=== PATIENT | male | born 1950 | race Caucasian/White ===

== ENCOUNTER → 2017-10-16 13:05 | Outpatient (CLI) | payer MEDICARE, OTHER, SELFPAY ==
--- NOTE | 2017-10-17 18:40 | DI.NM.S_ITS ---
DATE OF SERVICE: 10/16/2017 ORDERING PHYSICIAN: Yifan Frankel MD PROCEDURE: Exercise treadmill stress and rest myocardial perfusion imaging with gating to assess wall motion and ejection fraction. INDICATIONS: The patient is a 67-year-old male with risks factors for CAD and presents with atypical chest discomfort. EXERCISE TREADMILL TESTING: This patient was able to exercise for a total of 7 minutes 4 seconds on a standard Davie protocol suggesting fair exercise capacity within WALT of +5%. He had a normal heart response achieving a maximum heart rate of 138 bpm (91% of his predicted maximum). He had a moderate hypertensive blood pressure response to exercise with a resting blood pressure of 130/80 increasing to a maximum of 220/80. He had no chest discomfort. His resting ECG is normal and there are no ischemic changes or arrhythmias with stress or in recovery. At 6 minutes 8 seconds of exercise and a heart rate of 136 beats per minute, 27.0 mCi of technetium-99 Myoview was injected and the patient was imaged 15 minutes later using a gated SPECT acquisition protocol. He returned the following day and was reinjected with an additional 25.5 mCi of technetium-99 Myoview and was imaged 30 minutes later, again using a gated SPECT acquisition protocol. FINDINGS: 1. Raw Data: There is fairly good myocardial tracer uptake. Lung/heart ratio is normal at 0.38 and the TID ratio is normal at 1.02. 2. Quantitative Gated SPECT: Post stress ejection fraction is estimated at 68% without any focal wall motion abnormalities. Resting ejection fraction is estimated at 73% with an end-diastolic volume of 90 mL. 3. Myocardial Perfusion Imaging: Post stress supine images show a mild perfusion defect at the base of the inferior wall in a pattern consistent with diaphragmatic attenuation which is supported by its complete resolution on the prone images which reveal a completely normal perfusion pattern. There are no other perfusion defects. The resting images show an identical perfusion pattern to that of the post stress supine images without any areas of improvement. CONCLUSION: 1. Normal myocardial perfusion study. 2. Mild fixed proximal inferior perfusion defect that resolves on prone imaging, consistent with diaphragmatic attenuation artifact. There is no evidence for myocardial ischemia or previous myocardial infarction. 3. Normal left ventricular size and function without any focal wall motion abnormality. 4. Fair exercise capacity without angina or ECG evidence of ischemia, although with a moderate hypertensive blood pressure response to exercise. Jhony Max - RS/fn/ doc#: [id number]/job#: [id number] dd: 10/17/2017 12:37:00 dt: 10/17/2017 18:22:00 DICTATING /COPIES TO: Yifan Candelaria MD COPIES MNE: LIBBY
== END ==
PROVIDERS: PCP Family Medicine; Visit Provider Family Medicine
DX: R07.89 Other chest pain (principal)
CPT/HCPCS: 78452; 93016; 93017; 93018; A9502

== ENCOUNTER → 2017-10-17 10:06 | Outpatient (CLI) | payer MEDICARE, OTHER, SELFPAY ==
--- NOTE | 2017-10-17 | DI.US.S_ITS ---
PROCEDURE: US ABD AORTA ANEURYSM SCREEN INDICATIONS: ABDOMINAL AORTIC ANEURYSM SCREENING TECHNIQUE: Real time scanning was performed of the aorta and iliac arteries, with image documentation. COMPARISON: None. FINDINGS: Aorta: Proximal aortic diameter measures 2.2 cm. Mid-aorta measures 2.1 cm. Distal aortic diameter is 1.7 cm. Iliac arteries: Right common iliac artery measures 1.3 cm. Left common iliac artery measures 1.2 cm. IMPRESSION: No aneurysm or dissection found. Dictated by: Isael Newell M.D. on 10/17/2017 at 12:31 Approved by: Isael Newell M.D. on 10/17/2017 at 12:32
== END ==
PROVIDERS: PCP Family Medicine; Visit Provider Family Medicine
DX: Z13.6 Encounter for screening for cardiovascular disorders (principal)
CPT/HCPCS: 76706

== ENCOUNTER → 2018-03-07 10:53 | Outpatient (CLI) | payer MEDICARE, OTHER, SELFPAY ==
--- NOTE | 2018-03-07 | DI.RAD.S_ITS ---
PROCEDURE: XR SHOULDER RT MIN 2V INDICATIONS: Right shoulder pain TECHNIQUE: 3 views of the shoulder were acquired. COMPARISON: [facility], CR, XR CHEST 2V, 09/08/2017, 10:54. [facility], CR, XR RIBS BI MIN 4V W CXR1V, 03/07/2018, 10:59. FINDINGS: Bones: No fractures or dislocations. No suspicious bony lesions. Moderate acromioclavicular and mild glenohumeral joint narrowing. Remote right eighth and ninth posterior-lateral rib fractures redemonstrated. Soft tissues: No suspicious soft tissue calcifications. IMPRESSION: Moderate acromioclavicular and mild glenohumeral joint degeneration. Dictated by: Dhruv REESE Interpreted: Cortes Richardson MD on 03/07/2018 at 14:15 Approved by: Cortes Richardson M.D. on 03/07/2018 at 15:42
--- NOTE | 2018-03-07 | DI.RAD.S_ITS ---
PROCEDURE: XR RIBS BI MIN 4V W CXR1V INDICATIONS: Rib pain bilateral unspecified for several months TECHNIQUE: 4 views of the left ribs were acquired, along with a single view chest. COMPARISON: [facility], , XR CHEST 2V, 09/08/2017, 10:54. FINDINGS: Surgical changes and devices: None. Bones and chest wall: Healed right eighth and ninth posterior lateral rib fractures.. No suspicious bony lesions. Overlying soft tissues appear unremarkable. Lungs and pleura: No pleural effusions or pneumothorax. Lungs appear clear. Mediastinum: Mediastinal contours appear normal. Heart size is normal. IMPRESSION: No acute cardiopulmonary disease. Healed right eighth and ninth posterior lateral rib fractures redemonstrated. Dictated by: Dhruv Orlando RRA Interpreted: Cortes Richardson MD on 03/07/2018 at 14:12 Approved by: Cortes Richardson M.D. on 03/07/2018 at 15:41
== END ==
PROVIDERS: PCP Family Medicine; Visit Provider Family Medicine
DX: M25.511 Pain in right shoulder (principal); M19.011 Primary osteoarthritis, right shoulder; R07.81 Pleurodynia; Z87.81 Personal history of (healed) traumatic fracture
CPT/HCPCS: 71111; 73030

== ENCOUNTER 2018-06-04 07:38 | Day surgery (SDC) | payer MEDICARE, OTHER, SELFPAY ==
[2018-06-04] VITALS (9 sets, daily range): BP systolic 111–154; BP diastolic 67–85; PULSE 56–60; RESP 14–16; TEMP 36.2–37; O2SAT 90–98; BMI 57.2
--- NOTE | 2018-06-04 | PATH_ITS ---
[facility] Accession Number: [id number] . 01 Material submitted: . PART A: ANTRAL BIOPSIES PART B: GE JUNCTION BIOPSIES . 02 Diagnosis: A. Antrum, Biopsies: Gastric antral mucosa with mild chronic gastritis. No evidence of Helicobacter organisms on H/E stain. Negative for intestinal metaplasia, dysplasia or malignancy. . B. Gastroesophageal Junction, Biopsies: Squamous mucosa with no diagnostic abnormality. 0-1 eosinophils per 40X high-power field. No columnar mucosa present for evaluation. Negative for dysplasia or malignancy. . [facility]/06/05/2018 . 02 Electronically signed: . Mike Hi MD, PhD, Pathologist NPI- [id number] . 01 Gross description: . Received two formalin-filled containers, both labeled with the patient's name: . A. In a container labeled antral, are two 0.2-0.5 cm portions of tissue, entirely submitted in cassette A. B. In a container labeled GE junction, are three 0.2-0.6 cm portions of tissue, entirely submitted in cassette B. ([id number]) /FRR . 02 Pathologist provided ICD-10: K21.9, R10.13 . 02 CPT . 661606, 395495 Performed at: 01 [facility] [address], [place], [place] [id number] MD Segundo Cheung MD Phone: [phone] Performed at: 02 [facility] [address] [place], [place] [id number] MD Manuela De Leon MD Phone: [phone]
[2018-06-04] MEDS: SODIUM CHLORIDE 0.9% 1,000 ML 200 ML IV (08:19)
--- NOTE | 2018-06-04 08:33 | PM.PREOP ---
Pre-operative Note Interval Note History & Physical reviewed/Exam performed by Physician: Yes Changes to H&P: No H&P completed within 30 days and has changed as indicated here:: Patient seen and examined. History physical examination from May 23, 2018 has not changed. Proceed with EGD and possible dilatation today as planned. I ASA Class (for procedural sedation): II
[2018-06-04] MEDS: LIDOCAINE 4% SOLN 50 ML 20 ML TOP (08:51)
[2018-06-04] MEDS: TETRACAINE/BENZOCAINE/BUTAMBEN (CETACAINE) BOTTLE 1 SPRAY TOP (08:52)
[2018-06-04] MEDS: fentaNYL 250 MCG/5 ML INJ IV (09:00)
[2018-06-04] MEDS: MIDAZOLAM 5 MG/5 ML VIAL IV (09:01)
--- NOTE | 2018-06-04 09:09 | PM.OP.ENDO ---
Operative Date/Time/Diagnoses Date of procedure: 06/04/18 Time of procedure: 09:09 Pre-op diagnosis: Gastroesophageal reflux disease and dysphagia Post-op diagnosis: other (Gastritis, mild duodenitis, distal esophagitis at the GE junction, and Schatzki's ring subsequently dilated) Procedure & Clinicians Study performed: 1. Sedation per surgeon 2. Esophagogastroduodenoscopy with cold forceps biopsies 3. Serial esophageal dilatation with Pendleton bougie dilators size 52 and size 54 Same procedure as scheduled: Yes Indications: 67-year-old male who recently presented with progressive reflux disease and dysphagia, especially of solid food. EGD with potential dilatation and biopsy was recommended. Surgeon: Kale Ariza Procedure Notes SCOAP/Timeout: Yes Procedure in detail: After obtaining informed consent, the patient was brought to the GI suite and placed in the left lateral decubitus position on the examination table. After placement of appropriate monitors, the patient was given incremental doses of Versed and Fentanyl until an appropriate level of sedation was achieved. A time out was held per SCOAP protocol. A bite block was gently placed between the patient's teeth. The endoscope was lubricated and then passed into the patient's posterior oropharynx. The esophagus was cannulated under direct vision and the scope was passed to the second portion of the duodenum without difficulty. The scope was then withdrawn with careful examination of all areas of the upper GI tract and mucosa. In the stomach, the instrument was retroflexed and the GE junction examined. The scope was straightened and the procedure continued with examination of the remainder of the upper GI tract. Findings are noted above. Air was aspirated from the stomach and the endoscope gently removed from the esophagus. Serial dilatation was performed 1st with a 52 Sinhala Pendleton dilator then a 54 Sinhala Pendleton dilator which the patient tolerated well. Dilator returned easily without any blood. Scope was then reinserted over the tongue to the upper esophageal sphincter which was intubated and the scope was advanced distally under direct visualization of the esophageal lumen. Stomach was intubated. There was no evidence of any injury or hemorrhage including with retroflexed view. Meticulous examination of the distal esophagus revealed hemostasis and a widely patent gastroesophageal junction with the Z-line at 40 cm. The Schatzki's ring had been successfully dilated. There was no evidence of esophageal injury. Scope was then withdrawn it as the remainder of the esophagus was examined and noted to be normal. Scope withdrawn through the mouth and a bite block removed. The patient was allowed to awaken from sedation without difficulty and taken to the post-anesthesia care unit in good condition. Scope withdrawal time: Not applicable Sedation minutes: 21 Findings: gastritis, hiatal hernia (Rather small), stricture (Shots his ring at the GE junction, subsequently successfully dilated) and other findings (Mild duodenitis) Specimen(s): other (1. Antral biopsies 2. Gastroesophageal junction biopsies) Recommendations: Reflux diet, No ASA/NSAIDS and Continue medication(s) Plan for aftercare: 1. Discharge home 2. Clear liquid diet today then resume regular diet tomorrow as tolerated Follow up: weeks (Two weeks with Dr. Ariza) Disposition: PACU
--- NOTE | 2018-06-04 09:59 | SUR.PHASEII ---
Daughter brought in, d/c instructions discussed both voiced an understanding. Belly soft, drinking juice.
--- NOTE | 2018-06-04 10:33 | SUR.PHASEII ---
Pt ready to go, left in stable condition.
== END 2018-06-04 10:30 | disposition home or self-care (01) ==
PROVIDERS: PCP Family Medicine; Visit Provider Surgery
PROC: 0DJ08ZZ Inspection of Upper Intestinal Tract, Via Natural or Artificial Opening Endoscopic (ICD-10-PCS; CPT 43235; principal; 2018-06-04 10:15)
DX: K22.2 Esophageal obstruction (principal); K21.0 Gastro-esophageal reflux disease with esophagitis; K44.9 Diaphragmatic hernia without obstruction or gangrene; K29.80 Duodenitis without bleeding; K29.70 Gastritis, unspecified, without bleeding
CPT/HCPCS: 43239; 43450; 88305; 99152; J2250; J3010

== ENCOUNTER → 2018-07-20 10:34 | Outpatient (CLI) | payer MEDICARE, OTHER, SELFPAY ==
--- NOTE | 2018-07-20 10:37 | DI.RAD.S_ITS ---
PROCEDURE: FL UPPER GI W AIR INDICATIONS: dysphagia, possible dysmotility COMPARISON: None. FINDINGS: KUB: Preprocedural dial maker film demonstrates a normal bowel gas pattern. No suspicious abdominal calcifications. Visualized solid organ contours appear normal. Bony structures appear unremarkable. Esophagus: Esophageal mucosa is normal on air-contrast views. On single-contrast views, there is markedly decreased esophageal peristalsis. There is severely delayed esophageal clearance. No strictures, extrinsic mass effects. No hiatal hernia or elicited gastroesophageal reflux. Stomach: The stomach is normally distensible, with normal rugal fold thickness. No mucosal masses or ulcers. Pylorus and duodenal bulb appear normal in morphology. Incidentally noted duodenal diverticulum. IMPRESSION: Incidental duodenal diverticulum. Severe esophageal dysmotility and markedly delayed esophageal clearance. Occasional retropulsion of contrast material within the esophagus was observed in real-time. Dictated by: Jesse Herbret M.D. on 07/20/2018 at 11:49 Approved by: Jesse Herbert M.D. on 07/20/2018 at 11:52
--- NOTE | 2018-08-06 10:41 | DIET.PN ---
Met briefly w/pt to provide ed on surgery nutrition. DX: dysphagia, esophageal dysmotility, weight loss, malnutrition Ht: 69 Wt 160# BMI: 24 Diet very limited r/t dysphagia. Drinking mostly smoothies and some Boost Plus, but running out of the Boost. Continues to be active, playing basketball 3/wk. Provided ed on increasing cals and protein in liquified forms. Discussed option of PEG feeding tube, which pt hope to avoid. Suggested to keep food/selina record, eat 6+times/daily. Provided ed on pre/post surgery nutrition if has to have surgery.
== END ==
PROVIDERS: PCP Family Medicine; Visit Provider Surgery
DX: R13.10 Dysphagia, unspecified (principal); K22.4 Dyskinesia of esophagus; K57.10 Diverticulosis of small intestine without perforation or abscess without bleeding
CPT/HCPCS: 74247

== ENCOUNTER → 2018-11-02 12:02 | Outpatient (CLI) | payer MEDICARE, OTHER, SELFPAY ==
--- NOTE | 2018-11-02 13:30 | DI.CT.S_ITS ---
PROCEDURE: CT CHEST ABD PEL W CON INDICATIONS: Restaging esophageal cancer TECHNIQUE: After the administration of oral and intravenous contrast, 5 mm thick sections acquired from the lung apices to the symphysis. 5 mm coronal and sagittal reformats were performed, with additional 7 mm coronal MIP reformats through the lungs. For radiation dose reduction, the following was used: automated exposure control, adjustment of mA and/or kV according to patient size. COMPARISON: Outside Facility, RG, CT THORAX/ABDOMEN/PELVIS WITH CONTRAST, 08/14/2018, 17:26. FINDINGS: Image quality: Excellent. CHEST: Lungs and pleura: No acute airspace opacities. No pleural effusions or pneumothorax. Central and peripheral airways appear patent and normal in caliber. Mediastinum: Heart size is normal. No pericardial effusion. No mediastinal or hilar adenopathy by size criteria. Thoracic aorta and central pulmonary arteries are normal in size. Esophagus is normal in caliber. No hiatal hernia. Chest wall: No axillary or supraclavicular adenopathy by size criteria. Thyroid gland appears normal where well visualized. Port-A-Cath from right sided approach extends in normal position into the superior vena cava. ABDOMEN: Solid organs: Liver is normal in size and enhancement except for the presence of both multiple hepatic cysts and also an increase number and size of solid hepatic mass lesions involving the hepatic segments. A number of the nodules currently visualized are in areas of prior normal liver parenchyma from the study 08/14/18. There are vague but definite and low in enhancement, most consistent with worsening hepatic metastatic disease Gallbladder appears normal. Biliary system is non dilated. Pancreas enhances normally except at the posterior border of the pancreatic head where an ovoid water density structure measuring 10.7 Hounsfield units is again seen. This has not enlarged.. Spleen is normal in size and enhancement. No adrenal nodules. Kidneys demonstrate normal size and enhancement, without hydronephrosis. Peritoneum and bowel: Bowel loops demonstrate normal wall thickness and caliber. No free fluid or air. Gastrostomy tube within the gastric lumen. Nodes and vessels: No retroperitoneal or mesenteric adenopathy by size criteria. Aorta and inferior vena cava are normal in size. Miscellaneous: No ventral hernias. PELVIS: Genitourinary: Bladder wall thickness is normal. Miscellaneous: No inguinal hernias or adenopathy. Bones: No suspicious bony lesions. No vertebral body compression fractures. IMPRESSION: Increasing number and size of hepatic metastatic lesions, with reference to the recent prior CT scan from 08/14/18 which also included finding of hepatic metastatic disease. Stable appearance of an ovoid cystic structure at the posterior border of the pancreatic head, simple in character and measuring approximately 2.7 cm transverse and 1.1 cm AP. This area could be further assessed with the benefit of comparison prior CT scans earlier than 10/28/18 (from [facility]). Dictated by: Isael Newell M.D. on 11/02/2018 at 15:20 Approved by: Isael Newell M.D. on 11/02/2018 at 15:30
== END ==
PROVIDERS: PCP Family Medicine
DX: C15.9 Malignant neoplasm of esophagus, unspecified (principal); C78.7 Secondary malignant neoplasm of liver and intrahepatic bile duct
CPT/HCPCS: 71260; 74177; Q9967

== ENCOUNTER → 2018-11-07 09:00 | Oncology outpatient (ONC) | payer MEDICARE, OTHER, SELFPAY ==
[2018-08-29 09:43] VITALS: BP 102/58; PULSE 68; RESP 18; TEMP 36.8; O2SAT 98
--- NOTE | 2018-08-29 09:57 | CM.SWNOTE ---
Description: New Pt Intro Activity: Met with pt/dtr to introduce myself as the [employer], offer services card, and assess for immediate needs. Visit was brief due to provider being ready promptly to start his visit with patient. Pt states that he was just diagnosed 2-weeks ago, and since that time has had biopsy, port placement and a feeding tube placed while at [facility]. He is a , and is accompanied by his dtr, Faiza. He presents as pleasant, calm, and is hoping to begin treatment as soon as possible. He denies any immediate needs or concerns at this time, and is looking forward to hearing what recommendations Dr. Thomas will have for him today. [employer] will continue to monitor, as well as offer assistance/resources as needed.
--- NOTE | 2018-08-29 10:29 | ONC.CONS ---
History of Present Illness - Data of Consult Consult date: 08/29/18 Primary Care Provider: Yifan Frankel MD - Consult Narrative Narrative: Diagnosis: esophageal adenocarcinoma with liver metastasis. History of present illness: Jhony Max is a 68 year old male who is referred for further evaluation of newly diagnosed esophageal cancer. The patient reports that he had been taking some ibuprofen for his shoulder pain. He began to develop some abdominal discomfort. Because of this, he saw his primary physician. The ibuprofen was discontinued and the patient was referred for an EGD. It was performed in May. No evidence of malignancy was seen. Shortly after the procedure, he developed increasing pain in the esophagus. It became difficult for him to swallow. He felt like food was sticking. He began to lose weight. Because of these worsening symptoms, he was referred [facility] about [facility] weeks ago. He had an endoscopy there and was found to have an obstruction at the distal esophagus. Biopsies showed an adenocarcinoma that was poorly differentiated. Staging CT showed multiple low-density he lesions in the liver measuring up to 18 mm. There is also a low-density area in the region of the pancreas measuring 2.5 cm that was felt to likely represent a cyst. There was enhancing mass at the GE junction measuring 3.8 cm x 3.6 x 3.4 cm. There were some mildly enlarged paraesophageal lymph nodes. the patient had a diagnostic laparoscopy performed. Biopsies from the surface of the liver did confirm metastatic adenocarcinoma. He had a feeding tube placed and port placed. He has been recovering from his surgery. He is having ongoing abdominal pain. He has been using liquid oxycodone about 10 mg every 6 hours with adequate relief. He is able to swallow some liquids but no solids. He has been using his feeding tube about 3 times a day and tolerates that well but still does not have adequate caloric intake. He has been trying to do it more frequently. He denies any shortness of breath or cough. He has not noticed any adenopathy. No fevers chills or sweats. He is otherwise without complaint today. His past medical history is fairly unremarkable. He has had prior eye surgery for retinal problem. Had a hernia repair. He has had some arthritis involving the shoulder. His current medications include oxycodone Tylenol and docusate. He denies any drug allergies. His family history is notable for a sister who had pancreatic cancer. There is no other family history of malignancy. 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 He did smoke cigars but no cigarettes. He has had moderate alcohol use. He has recently removed to [place] from [place] about 3 years ago to be closer to his daughter. CC: Lanre Thomas MD Home Medications and Allergies Home Medications Medication Instructions Recorded Confirmed Type nut tx, lactose-reduced, iron 0.09 See Rx Instructions PO QID 30 Days 08/07/18 08/29/18 Rx gram-2.25 kcal/mL oral liquid #237 ml docusate sodium 100 mg PO DAILY 08/29/18 08/29/18 History fluorouracil 4,300 mg IV NOW #1 device 08/29/18 Rx ondansetron 8 mg PO Q8H PRN #30 tab 08/29/18 Rx oxycodone 10 mg PO Q4-6H PRN 20 Days #800 ml 08/29/18 Rx sennosides [Senna Lax] 08/29/18 History Allergies Allergy/AdvReac Type Severity Reaction Status Date / Time No Known Drug Allergies Allergy Unverified 06/27/18 10:08 Medical History - Medical, Surgical, Family History Medical History: Medical History (Updated 08/29/18 @ 10:23 by Lanre Thomas MD) Dysphagia Epigastric pain Hypercholesterolemia Tobacco use Surgical History: Surgical History (Updated 05/23/18 @ 11:54 by Kale Ariza MD) History of colonoscopy History of hernia repair H/O hernia repair Onset Date: ~2001 Family History: Family History (Updated 05/23/18 @ 11:14 by Jaquelin Sanchez LPN) Father Hypertension Stroke Sister Pancreatic cancer - Social History Smoking Status: Current every day smoker Review of Systems - Patient Self-Reported Symptoms SR Constitution: Weight loss/gain SR ears, nose, mouth, throat issues: Difficulty swallowing SR Gastrointestinal issues: Poor or no appetite, Change in bowel pattern, Diarrhea, Abdominal pain SR Musculoskeletal issues: Cold hands or feet SR Endocrine issues: Cold intolerance Constitutional: weight loss, normal activity level Cardiovascular: no chest pain Respiratory: no shortness of breath Gastrointestinal: change in appetite, dysphagia, abdominal pain Exam Vital signs: Vital Signs Temp Pulse Resp BP Pulse Ox 08/29/18 09:43 98.2 F 68 18 102/58 L 98 Intake and Output 08/28/18 08/29/18 08/29/18 23:59 07:59 15:59 Other: Weight 71.5 kg Patient Weight 08/29/18 23:59 Weight 71.5 kg - Constitutional positive no acute distress, positive average body habitus - Routine HEENT Exam Head: Present: normocephalic, atraumatic Eye: Present: EOMI, PERRL. Absent: conjunctival icterus, scleral injection ENT: Present: mucous membranes moist, oropharynx clear - Routine Neck Exam Present: supple. Absent: lymphadenopathy, thyromegaly - Routine Chest/Breast/Axilla Exam Axillae: Absent: lymphadenopathy - Routine Respiratory Exam Present: Clear to auscultation bilaterally. Absent: rales, wheezes - Routine Cardiovascular Exam Present: RRR, S1, S2. Absent: murmur - Routine Abdominal Exam Present: soft, normoactive bowel sounds. Absent: tenderness, organomegaly, mass Comments: Feeding tube is in place. There is no erythema or purulence. - Routine Extremities Exam Absent: cyanosis, clubbing, edema - Routine Back/Spine Exam Back/Spine: Absent: paraspinal tenderness, vertebral tenderness - Routine Skin Exam Present: intact. Absent: petechiae, rash - Routine Neurological Exam Present: alert, oriented X3 - Routine Psychiatric Exam Present: normal affect, normal thought process Assessment and Plan (1) Esophageal cancer, stage IV Current visit: Yes Status: Acute 68-year-old man with a good performance status has previously been healthy. He has a new diagnosis of adenocarcinoma of the esophagus with metastasis to the liver. We do not yet have results of HER2, MMR or PD L1. Will check with pathology at [facility] to see if those are available. If not, they will need to be ordered. I described first-line chemotherapy with FOLFOX. Side effects including alopecia, nausea and vomiting, change in taste and appetite, risk for cytopenias and infection, risk for neuropathy, and risk for mucositis and rash reviewed with the patient. He does understand that the goal of therapy is palliative in to prolong survival but is not a curative. We will plan on starting as soon as can be practically arranged, hopefully next week. If his tumor does rubber turner to be her 2 positive, we will plan on adding Herceptin. If he does evidence of mismatch repair deficiency or a high PD L1 level, then immunotherapy as second-line therapy should be considered. He will return to clinic in about 2 weeks or so for follow-up but sooner should the need arise. He does have ongoing pain will continue with the liquid oxycodone. If he is getting inadequate relief, we could consider fentanyl patch.
[2018-09-04 10:44] LABS: Add Manual Diff / Slide Review NO; Basophils Absolute Auto 100 /uL (0-100); Basophils Percent Auto 0.8 % (0-2); Eosinophils Absolute Auto 600 /uL (0-450); Eosinophils Percent Auto 5.1 % (2-4); Hematocrit 40.5 % (41-53); Hemoglobin 13.5 g/dL (13.5-17.5); Lymphocytes Absolute Auto 2100 /uL (1100-4500); Lymphocytes Percent Auto 19.2 % (25-40); Mean Corpuscular HGB Conc 33.3 % (30-36); Mean Corpuscular Hemoglobin 29.5 PG (26-34); Mean Corpuscular Volume 88.4 fL (80-100); Monocytes Absolute Auto 1100 /uL (0-900); Neutrophils Absolute Auto 7100 /uL (1500-7000); Neutrophils Percent Auto 64.9 % (50-75); Platelet Count 355 X10^3/uL (150-400); Red Blood Cell Count 4.58 X10^6/uL (4.5-5.9); Red Cell Distribution Width 13.2 % (11.6-14.8)
[2018-09-04 10:52] LABS: Alanine Aminotransferase 31 IU/L (21-72); Albumin 4.1 g/dL (3.5-5.0); Albumin Globulin Ratio 1.3 (1.0-2.8); Alkaline Phosphatase 73 U/L (38-126); Aspartate Aminotransferase 22 IU/L (17-59); BUN Creatinine Ratio 22.5 (6-22); Bilirubin Total 0.7 mg/dL (0.2-1.3); Blood Urea Nitrogen 18 mg/dL (9-20); Carbon Dioxide 30 mmol/L (22-32); Chloride 98 mmol/L (98-107); Estimated Glomerular Filt Rate > 60.0 mL/min (>60); Globulin 3.1 g/dL (1.7-4.1); Glucose 92 mg/dL (80-110); HEMOLYSIS < 15 (0-50); Potassium 4.2 mmol/L (3.4-5.1); Sodium 138 mmol/L (137-145); Total Protein 7.2 g/dL (6.3-8.2)
[2018-09-04] MEDS: DEXAMETHASONE 12 MG in SODIUM CHLORIDE 0.9% 50 ML 212 ML IV (11:33)
[2018-09-04] MEDS: ONDANSETRON 16 MG in SODIUM CHLORIDE 0.9% 50 ML 232 ML IV (11:58)
[2018-09-04 12:25] VITALS: TEMP 36.6
[2018-09-04] MEDS: OXYCODONE 5 MG/5 ML ORAL SOLUTION 10 MG PO (12:25)
[2018-09-04 12:29] VITALS: BP 139/72; PULSE 59; RESP 16; TEMP 36.6; O2SAT 97
[2018-09-04] MEDS: DEXTROSE 5% IV ×2 (12:45→12:46)
[2018-09-04] MEDS: OXALIPLATIN IV (12:45)
[2018-09-04] MEDS: LEUCOVORIN IV (12:46)
[2018-09-04] MEDS: FLUOROURACIL IV (15:19)
[2018-09-04] MEDS: ISOOSMOTIC VEHICLE IV (15:19)
[2018-09-06 13:27] VITALS: BP 139/81; PULSE 75; RESP 18; TEMP 36.4; O2SAT 95
[2018-09-11 09:44] VITALS: BP 128/84; PULSE 67; RESP 16; TEMP 36.7; O2SAT 96
--- NOTE | 2018-09-11 10:06 | ONC.PN ---
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 Previous treatment: 1. One cycle of FOLFOX beginning last week Interval history: The patient is a 68-year-old man with a newly diagnosed metastatic esophageal cancer. He started his chemotherapy last week. He tolerated his 1st cycle without too much difficulty. He did have some mild nausea that was controlled with ondansetron ODTs. He did not have any emesis. He did notice some cold sensitivity particularly in the hands but this has been diminishing. He has not noticed any diarrhea and has been tending toward constipation. No fevers chills or sweats. No shortness of breath or cough. No mouth sores or skin rash. He has been using oxycodone liquid for his pain. He has been taking 10 mg about every 4-5 hours. He notes that he has been able to sleep better. His pain has been reasonably well controlled. He is however already running low on his oxycodone supply. He has been able to swallow liquids as well as some soft foods like yogurt. He is not able to swallow anything more solid. He has been getting all of his nutrition via his feeding tube. He has been tolerating that without any difficulty and his weight has been stable or up perhaps 1 or 2 lb. Strength and energy level have been low but stable. He is walking every day. He denies any other changes in his health. - Patient Self-Reported Symptoms SR Constitution: Weight loss/gain SR ears, nose, mouth, throat issues: Difficulty swallowing SR Gastrointestinal issues: Change in bowel pattern SR Musculoskeletal issues: Cold hands or feet SR Endocrine issues: Cold intolerance Home Medications and Allergies Home Medications Medication Instructions Recorded Confirmed Type nut tx, lactose-reduced, iron 0.09 See Rx Instructions PO QID 30 Days 08/07/18 08/29/18 Rx gram-2.25 kcal/mL oral liquid #237 ml docusate sodium 100 mg PO DAILY 08/29/18 08/29/18 History fluorouracil 4,300 mg IV NOW #1 device 08/29/18 Rx ondansetron 8 mg PO Q8H PRN #30 tab 08/29/18 Rx sennosides [Senna Lax] 08/29/18 History acetaminophen [Pain Relief Adult] 650 mg PO Q4-6H PRN #500 ml 09/11/18 Rx fentanyl [Duragesic] 1 patch TRANSDERMAL Q72H 30 Days 09/11/18 Rx #10 ea oxycodone 10 mg PO Q4-6H PRN 20 Days #800 ml 09/11/18 Rx Allergies Allergy/AdvReac Type Severity Reaction Status Date / Time No Known Drug Allergies Allergy Unverified 06/27/18 10:08 Exam Vital signs: Vital Signs Temp Pulse Resp BP Pulse Ox 09/11/18 09:44 98.0 F 67 16 128/84 96 Intake and Output 09/10/18 09/11/18 09/11/18 23:59 07:59 15:59 Other: Weight 71.2 kg Patient Weight 09/11/18 23:59 Weight 71.2 kg - Constitutional positive no acute distress, positive average body habitus - Routine HEENT Exam Head: Present: normocephalic, atraumatic Eye: Present: EOMI, PERRL. Absent: conjunctival icterus, scleral injection ENT: Present: mucous membranes moist, oropharynx clear - Routine Neck Exam Present: supple. Absent: lymphadenopathy, thyromegaly - Routine Respiratory Exam Present: Clear to auscultation bilaterally. Absent: rales, wheezes - Routine Cardiovascular Exam Present: RRR, S1, S2. Absent: murmur - Routine Abdominal Exam Present: soft, normoactive bowel sounds. Absent: tenderness, organomegaly, mass - Routine Extremities Exam Absent: cyanosis, clubbing, edema - Routine Back/Spine Exam Back/Spine: Absent: vertebral tenderness - Routine Skin Exam Present: intact. Absent: petechiae, rash - Routine Neurological Exam Present: alert, oriented X3 - Routine Psychiatric Exam Present: normal affect, normal thought process Results - Labs Laboratory Last Values WBC 11.0 X10^3/uL (4.5-11.0) 09/04/18 10:25 RBC 4.58 X10^6/uL (4.5-5.9) 09/04/18 10:25 Hgb 13.5 g/dL (13.5-17.5) 09/04/18 10:25 Hct 40.5 % (41-53) L 09/04/18 10:25 MCV 88.4 fL (80-100) 09/04/18 10:25 MCH 29.5 PG (26-34) 09/04/18 10:25 MCHC 33.3 % (30-36) 09/04/18 10:25 RDW 13.2 % (11.6-14.8) 09/04/18 10:25 Plt Count 355 X10^3/uL (150-400) 09/04/18 10:25 Neut % (Auto) 64.9 % (50-75) 09/04/18 10:25 Lymph % (Auto) 19.2 % (25-40) L 09/04/18 10:25 [place] % (Auto) 10.0 % (3-14) 09/04/18 10:25 Eos % (Auto) 5.1 % (2-4) H 09/04/18 10:25 Baso % (Auto) 0.8 % (0-2) 09/04/18 10:25 Neut # (Auto) 7100 /uL (8327-4236) H 09/04/18 10:25 Lymph # (Auto) 2100 /uL (5022-9697) 09/04/18 10:25 [place] # (Auto) 1100 /uL (0-900) H 09/04/18 10:25 Eos # (Auto) 600 /uL (0-450) H 09/04/18 10:25 Baso # (Auto) 100 /uL (0-100) 09/04/18 10:25 Sodium 138 mmol/L (137-145) 09/04/18 10:25 Potassium 4.2 mmol/L (3.4-5.1) 09/04/18 10:25 Chloride 98 mmol/L (98-107) 09/04/18 10:25 Carbon Dioxide 30 mmol/L (22-32) 09/04/18 10:25 BUN 18 mg/dL (9-20) 09/04/18 10:25 Creatinine 0.80 mg/dL (0.66-1.25) 09/04/18 10:25 Estimated GFR > 60.0 mL/min (>60) 09/04/18 10:25 BUN/Creatinine Ratio 22.5 (6-22) H 09/04/18 10:25 Glucose 92 mg/dL (80-110) 09/04/18 10:25 Calcium 9.0 mg/dL (8.4-10.2) 09/04/18 10:25 Total Bilirubin 0.7 mg/dL (0.2-1.3) 09/04/18 10:25 AST 22 IU/L (17-59) 09/04/18 10:25 ALT 31 IU/L (21-72) 09/04/18 10:25 Alkaline Phosphatase 73 U/L (38-126) 09/04/18 10:25 Total Protein 7.2 g/dL (6.3-8.2) 09/04/18 10:25 Albumin 4.1 g/dL (3.5-5.0) 09/04/18 10:25 Globulin 3.1 g/dL (1.7-4.1) 09/04/18 10:25 Albumin/Globulin Ratio 1.3 (1.0-2.8) 09/04/18 10:25 Assessment and Plan (1) Esophageal cancer, stage IV Current visit: Yes Status: Acute 68-year-old man with a good performance status has previously been healthy. He has a new diagnosis of adenocarcinoma of the esophagus with metastasis to the liver. HER2 is negative but MMR and PD L1 are pending. He has tolerated his 1st round of chemotherapy with minimal toxicity. His pain control has been fair with the oxycodone and I think he would benefit from a long-acting medication. Because of his difficulty swallowing, I think Duragesic patch would be good option for him. I did give him a prescription for 12 micro g. I also gave him a refill for his oxycodone and a prescription for liquid Tylenol. A return to clinic in about a week he will be due for his 2nd cycle then. I would anticipate a CT scan after 2-3 months of treatment depending on his symptomatic response.
[2018-09-18 08:46] VITALS: BP 122/72; PULSE 62; RESP 18; TEMP 36.8; O2SAT 98
--- NOTE | 2018-09-18 09:02 | P.PNONC_ITS ---
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 One cycle of FOLFOX Interval history: The patient is a 68-year-old man with a newly diagnosed metastatic esophageal cancer. He has completed 1 cycle of FOLFOX and is due for his 2nd cycle today. He notes that he still has a little bit of neuropathy if he touches something too cold but otherwise feels well. He has not had any nausea or vomiting. He continues to use oxycodone for his pain. He just received his fentanyl patches but has not started them yet. He notes that he is swallowing liquids and few soft foods like noodles. He is getting the majority of his nutrition via his feeding tube however. He is having some intermittent soft stool. No mouth sores or skin rash. No fevers chills or sweats. Strength and energy level have been normal. He denies any other changes in his health. - Patient Self-Reported Symptoms SR Constitution: Weight loss/gain SR ears, nose, mouth, throat issues: Difficulty swallowing SR Gastrointestinal issues: Diarrhea, Constipation SR Musculoskeletal issues: Cold hands or feet SR Endocrine issues: Cold intolerance Home Medications and Allergies Home Medications Medication Instructions Recorded Confirmed Type nut tx, lactose-reduced, iron 0.09 See Rx Instructions PO QID 30 Days 08/07/18 08/29/18 Rx gram-2.25 kcal/mL oral liquid #237 ml docusate sodium 100 mg PO DAILY 08/29/18 08/29/18 History fluorouracil 4,300 mg IV NOW #1 device 08/29/18 Rx ondansetron 8 mg PO Q8H PRN #30 tab 08/29/18 Rx sennosides [Senna Lax] 08/29/18 History acetaminophen [Pain Relief Adult] 650 mg PO Q4-6H PRN #500 ml 09/11/18 Rx fentanyl [Duragesic] 1 patch TRANSDERMAL Q72H 30 Days 09/11/18 09/18/18 Rx #10 ea fluorouracil 4,300 mg IV NOW #1 device 09/11/18 Rx Allergies Allergy/AdvReac Type Severity Reaction Status Date / Time No Known Drug Allergies Allergy Unverified 06/27/18 10:08 Exam Vital signs: Vital Signs Temp Pulse Resp BP Pulse Ox 09/18/18 08:46 98.2 F 62 18 122/72 98 Intake and Output 09/17/18 09/18/18 09/18/18 23:59 07:59 15:59 Other: Weight 70.5 kg Patient Weight 09/18/18 23:59 Weight 70.5 kg - Constitutional positive no acute distress, positive average body habitus - Routine HEENT Exam Head: Present: normocephalic, atraumatic Eye: Present: EOMI, PERRL. Absent: conjunctival icterus, scleral injection ENT: Present: mucous membranes moist, oropharynx clear - Routine Neck Exam Present: supple. Absent: lymphadenopathy, thyromegaly - Routine Respiratory Exam Present: Clear to auscultation bilaterally. Absent: rales, wheezes - Routine Cardiovascular Exam Present: RRR, S1, S2. Absent: murmur - Routine Abdominal Exam Present: soft, normoactive bowel sounds. Absent: tenderness, organomegaly, mass Comments: He does have a feeding tube in place. - Routine Extremities Exam Absent: cyanosis, clubbing, edema - Routine Back/Spine Exam Back/Spine: Absent: paraspinal tenderness, vertebral tenderness - Routine Skin Exam Present: intact. Absent: petechiae, rash - Routine Neurological Exam Present: alert, oriented X3 - Routine Psychiatric Exam Present: normal affect, normal thought process Results - Labs Laboratory Last Values WBC 11.0 X10^3/uL (4.5-11.0) 09/04/18 10:25 RBC 4.58 X10^6/uL (4.5-5.9) 09/04/18 10:25 Hgb 13.5 g/dL (13.5-17.5) 09/04/18 10:25 Hct 40.5 % (41-53) L 09/04/18 10:25 MCV 88.4 fL (80-100) 09/04/18 10:25 MCH 29.5 PG (26-34) 09/04/18 10:25 MCHC 33.3 % (30-36) 09/04/18 10:25 RDW 13.2 % (11.6-14.8) 09/04/18 10:25 Plt Count 355 X10^3/uL (150-400) 09/04/18 10:25 Neut % (Auto) 64.9 % (50-75) 09/04/18 10:25 Lymph % (Auto) 19.2 % (25-40) L 09/04/18 10:25 [place] % (Auto) 10.0 % (3-14) 09/04/18 10:25 Eos % (Auto) 5.1 % (2-4) H 09/04/18 10:25 Baso % (Auto) 0.8 % (0-2) 09/04/18 10:25 Neut # (Auto) 7100 /uL (1495-0063) H 09/04/18 10:25 Lymph # (Auto) 2100 /uL (4646-4345) 09/04/18 10:25 [place] # (Auto) 1100 /uL (0-900) H 09/04/18 10:25 Eos # (Auto) 600 /uL (0-450) H 09/04/18 10:25 Baso # (Auto) 100 /uL (0-100) 09/04/18 10:25 Sodium 138 mmol/L (137-145) 09/04/18 10:25 Potassium 4.2 mmol/L (3.4-5.1) 09/04/18 10:25 Chloride 98 mmol/L (98-107) 09/04/18 10:25 Carbon Dioxide 30 mmol/L (22-32) 09/04/18 10:25 BUN 18 mg/dL (9-20) 09/04/18 10:25 Creatinine 0.80 mg/dL (0.66-1.25) 09/04/18 10:25 Estimated GFR > 60.0 mL/min (>60) 09/04/18 10:25 BUN/Creatinine Ratio 22.5 (6-22) H 09/04/18 10:25 Glucose 92 mg/dL (80-110) 09/04/18 10:25 Calcium 9.0 mg/dL (8.4-10.2) 09/04/18 10:25 Total Bilirubin 0.7 mg/dL (0.2-1.3) 09/04/18 10:25 AST 22 IU/L (17-59) 09/04/18 10:25 ALT 31 IU/L (21-72) 09/04/18 10:25 Alkaline Phosphatase 73 U/L (38-126) 09/04/18 10:25 Total Protein 7.2 g/dL (6.3-8.2) 09/04/18 10:25 Albumin 4.1 g/dL (3.5-5.0) 09/04/18 10:25 Globulin 3.1 g/dL (1.7-4.1) 09/04/18 10:25 Albumin/Globulin Ratio 1.3 (1.0-2.8) 09/04/18 10:25 Assessment and Plan (1) Esophageal cancer, stage IV Current visit: Yes Status: Acute 68-year-old man with a good performance status has previously been healthy. He has a new diagnosis of adenocarcinoma of the esophagus with metastasis to the liver. HER2 is negative, normal MMR and PD L1 is pending. He has tolerated his 1st round of chemotherapy with minimal toxicity. He will proceed with his 2nd cycle today assuming his counts are okay. He will start on his fentanyl patch. Hopefully this will provide better pain control and he will need less oxycodone. He will return to clinic in 2 weeks for follow-up. I would anticipate a CT scan after 2-3 months of treatment depending on his symptomatic response.
[2018-09-18 09:42] LABS: Add Manual Diff / Slide Review NO; Basophils Absolute Auto 0 /uL (0-100); Basophils Percent Auto 0.5 % (0-2); Eosinophils Absolute Auto 500 /uL (0-450); Eosinophils Percent Auto 6.9 % (2-4); Hematocrit 35.6 % (41-53); Hemoglobin 12.1 g/dL (13.5-17.5); Lymphocytes Absolute Auto 1600 /uL (1100-4500); Lymphocytes Percent Auto 20.9 % (25-40); Mean Corpuscular HGB Conc 34.1 % (30-36); Mean Corpuscular Hemoglobin 29.9 PG (26-34); Mean Corpuscular Volume 87.8 fL (80-100); Monocytes Absolute Auto 900 /uL (0-900); Monocytes Percent Auto 11.3 % (3-14); Neutrophils Absolute Auto 4500 /uL (1500-7000); Neutrophils Percent Auto 60.4 % (50-75); Platelet Count 226 X10^3/uL (150-400); Red Blood Cell Count 4.05 X10^6/uL (4.5-5.9); Red Cell Distribution Width 13.6 % (11.6-14.8); White Blood Cell Count 7.5 X10^3/uL (4.5-11.0)
[2018-09-18 09:53] LABS: Alanine Aminotransferase 24 IU/L (21-72); Albumin 3.7 g/dL (3.5-5.0); Alkaline Phosphatase 57 U/L (38-126); Aspartate Aminotransferase 16 IU/L (17-59); BUN Creatinine Ratio 21.3 (6-22); Bilirubin Total 0.8 mg/dL (0.2-1.3); Blood Urea Nitrogen 17 mg/dL (9-20); Calcium 8.9 mg/dL (8.4-10.2); Carbon Dioxide 26 mmol/L (22-32); Chloride 104 mmol/L (98-107); Estimated Glomerular Filt Rate > 60.0 mL/min (>60); Globulin 2.6 g/dL (1.7-4.1); Glucose 114 mg/dL (80-110); Potassium 3.8 mmol/L (3.4-5.1); Sodium 138 mmol/L (137-145); Total Protein 6.3 g/dL (6.3-8.2)
[2018-09-18 09:54] LABS: Albumin Globulin Ratio 1.4 (1.0-2.8); HEMOLYSIS < 15 (0-50)
[2018-09-18] MEDS: DEXAMETHASONE 12 MG in SODIUM CHLORIDE 0.9% 50 ML 212 ML IV (10:49)
[2018-09-18] MEDS: OXYCODONE 5 MG/5 ML ORAL SOLUTION 10 MG PO (11:21)
[2018-09-18] MEDS: ONDANSETRON 16 MG in SODIUM CHLORIDE 0.9% 50 ML 232 ML IV (11:22)
[2018-09-18] MEDS: ACETAMINOPHEN SUSP 650 MG/20.3 ML UDC PO (11:55)
[2018-09-18] MEDS: DEXTROSE 5 % IN WATER 100 ML 21 ML IV (12:25)
[2018-09-18] MEDS: DEXTROSE 5% IV ×2 (12:26)
[2018-09-18] MEDS: OXALIPLATIN IV (12:26)
[2018-09-18] MEDS: LEUCOVORIN IV (12:26)
--- NOTE | 2018-09-18 12:43 | ONC.MSW ---
*Pt received a Chemo Quilt.
[2018-09-18] MEDS: FLUOROURACIL IV (15:32)
[2018-09-18] MEDS: ISOOSMOTIC VEHICLE IV (15:32)
[2018-09-20 14:24] VITALS: BP 137/76; PULSE 57; RESP 18; TEMP 36.7
--- NOTE | 2018-09-20 14:53 | PC.NURSE ---
CADD pump dc'd w/o issue. Flushed port per protocol. Pt tolerated w/o issue.
[2018-09-25 15:20] LABS: Add Manual Diff / Slide Review NO; Basophils Absolute Auto 100 /uL (0-100); Basophils Percent Auto 1.3 % (0-2); Eosinophils Absolute Auto 600 /uL (0-450); Eosinophils Percent Auto 10.6 % (2-4); Hematocrit 35.8 % (41-53); Hemoglobin 12.3 g/dL (13.5-17.5); Lymphocytes Absolute Auto 2200 /uL (1100-4500); Lymphocytes Percent Auto 39.6 % (25-40); Mean Corpuscular HGB Conc 34.4 % (30-36); Mean Corpuscular Hemoglobin 30.2 PG (26-34); Mean Corpuscular Volume 87.7 fL (80-100); Monocytes Absolute Auto 600 /uL (0-900); Monocytes Percent Auto 10.3 % (3-14); Neutrophils Absolute Auto 2100 /uL (1500-7000); Neutrophils Percent Auto 38.2 % (50-75); Platelet Count 269 X10^3/uL (150-400); Red Blood Cell Count 4.08 X10^6/uL (4.5-5.9); Red Cell Distribution Width 13.7 % (11.6-14.8); White Blood Cell Count 5.6 X10^3/uL (4.5-11.0)
[2018-09-25 15:49] LABS: Alanine Aminotransferase 26 IU/L (21-72); Albumin 4.1 g/dL (3.5-5.0); Albumin Globulin Ratio 1.5 (1.0-2.8); Alkaline Phosphatase 58 U/L (38-126); Aspartate Aminotransferase 30 IU/L (17-59); BUN Creatinine Ratio 25.7 (6-22); Bilirubin Total 0.5 mg/dL (0.2-1.3); Blood Urea Nitrogen 18 mg/dL (9-20); Calcium 9.1 mg/dL (8.4-10.2); Carbon Dioxide 28 mmol/L (22-32); Chloride 100 mmol/L (98-107); Estimated Glomerular Filt Rate > 60.0 mL/min (>60); Globulin 2.8 g/dL (1.7-4.1); Glucose 89 mg/dL (80-110); HEMOLYSIS < 15 (0-50); Potassium 3.9 mmol/L (3.4-5.1); Sodium 137 mmol/L (137-145); Total Protein 6.9 g/dL (6.3-8.2)
--- NOTE | 2018-09-26 14:20 | PC.NURSE ---
Patient called in requesting refill on his oxycodon syrup (5mg/5ml) in 800 ml bottle. 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
--- NOTE | 2018-10-02 08:38 | P.PNONC_ITS ---
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 FOLFOX x 2 Interval history: The second cycle has been well tolerated. He reports no fever and no sore throat. Patient said that he is trying to eat by mouth, but was still having problems. Food tends to be lodged in the lower chest He is using the PEG tube exclusively. Patient is using boost and some homemade smoothies. Patient said that he is changing his fentanyl patch once every probably 3-5 days. The pain has been under excellent control. No shortness of breath no chest pain. Patient still having cold sensitivity when touching cold objects. - Patient Self-Reported Symptoms SR Constitution: Weight loss/gain SR ears, nose, mouth, throat issues: Difficulty swallowing SR Gastrointestinal issues: Diarrhea, Constipation SR Musculoskeletal issues: Cold hands or feet SR Endocrine issues: Cold intolerance - Additional ROS All systems PM: reviewed and no additional remarkable complaints except as stated Home Medications and Allergies Home Medications Medication Instructions Recorded Confirmed Type nut tx, lactose-reduced, iron 0.09 See Rx Instructions PO QID 30 Days 08/07/18 08/29/18 Rx gram-2.25 kcal/mL oral liquid #237 ml docusate sodium 100 mg PO DAILY 08/29/18 08/29/18 History fluorouracil 4,300 mg IV NOW #1 device 08/29/18 Rx ondansetron 8 mg PO Q8H PRN #30 tab 08/29/18 Rx sennosides [Senna Lax] 08/29/18 History acetaminophen [Pain Relief Adult] 650 mg PO Q4-6H PRN #500 ml 09/11/18 Rx fentanyl [Duragesic] 1 patch TRANSDERMAL Q72H 30 Days 09/11/18 09/18/18 Rx #10 ea fluorouracil 4,300 mg IV NOW #1 device 09/11/18 Rx oxycodone 10 mg PO Q4-6H PRN #800 ml 09/26/18 Rx Allergies Allergy/AdvReac Type Severity Reaction Status Date / Time No Known Drug Allergies Allergy Unverified 06/27/18 10:08 Exam Vital signs: Last Vital Signs Temp 98.9 F 10/02/18 08:44 Pulse 65 10/02/18 08:44 Resp 16 10/02/18 08:44 BP 120/73 10/02/18 08:44 Pulse Ox 98 10/02/18 08:44 ECOG 1 Narrative: Gen: WD, thin, NAD, pleasant and cooperative. accompanied by his daughter HEENT: NCAT, EOMI, PERRLA, anicteric sclera. Neck: Supple, No palpable thyromegaly or lymphadenopathy. Respiratory: CTAB, no wheezes audible. No JVD Cardiovascular: RRR, S1 and S2 normal, no M/G/R. Abdomen: Soft, NTND, BS normal, no palpable organomegaly, PEG tube noted Extremities: No LE pitting edema. Lymphatic: no palpable lymph nodes in the neck, axillae Neurological: AOx3, CN II-XII grossly intact. No focal motor or sensory deficit. Psychiatric: Normal affect; cooperative Results - Labs Laboratory Last Values WBC 7.0 X10^3/uL (4.5-11.0) 10/02/18 09:10 RBC 4.21 X10^6/uL (4.5-5.9) L 10/02/18 09:10 Hgb 12.7 g/dL (13.5-17.5) L 10/02/18 09:10 Hct 36.8 % (41-53) L 10/02/18 09:10 MCV 87.4 fL (80-100) 10/02/18 09:10 MCH 30.1 PG (26-34) 10/02/18 09:10 MCHC 34.5 % (30-36) 10/02/18 09:10 RDW 15.0 % (11.6-14.8) H 10/02/18 09:10 Plt Count 165 X10^3/uL (150-400) 10/02/18 09:10 Neut % (Auto) 57.7 % (50-75) 10/02/18 09:10 Lymph % (Auto) 22.9 % (25-40) L 10/02/18 09:10 [place] % (Auto) 14.1 % (3-14) H 10/02/18 09:10 Eos % (Auto) 4.6 % (2-4) H 10/02/18 09:10 Baso % (Auto) 0.7 % (0-2) 10/02/18 09:10 Neut # (Auto) 4000 /uL (5977-2011) 10/02/18 09:10 Lymph # (Auto) 1600 /uL (8340-8099) 10/02/18 09:10 [place] # (Auto) 1000 /uL (0-900) H 10/02/18 09:10 Eos # (Auto) 300 /uL (0-450) 10/02/18 09:10 Baso # (Auto) 0 /uL (0-100) 10/02/18 09:10 Sodium 137 mmol/L (137-145) 10/02/18 09:10 Potassium 4.5 mmol/L (3.4-5.1) 10/02/18 09:10 Chloride 100 mmol/L (98-107) 10/02/18 09:10 Carbon Dioxide 30 mmol/L (22-32) 10/02/18 09:10 BUN 14 mg/dL (9-20) 10/02/18 09:10 Creatinine 0.80 mg/dL (0.66-1.25) 10/02/18 09:10 Estimated GFR > 60.0 mL/min (>60) 10/02/18 09:10 BUN/Creatinine Ratio 17.5 (6-22) 10/02/18 09:10 Glucose 101 mg/dL (80-110) 10/02/18 09:10 Calcium 8.9 mg/dL (8.4-10.2) 10/02/18 09:10 Total Bilirubin 1.5 mg/dL (0.2-1.3) H 10/02/18 09:10 AST 19 IU/L (17-59) 10/02/18 09:10 ALT 19 IU/L (21-72) L 10/02/18 09:10 Alkaline Phosphatase 61 U/L (38-126) 10/02/18 09:10 Total Protein 6.8 g/dL (6.3-8.2) 10/02/18 09:10 Albumin 3.9 g/dL (3.5-5.0) 10/02/18 09:10 Globulin 2.9 g/dL (1.7-4.1) 10/02/18 09:10 Albumin/Globulin Ratio 1.3 (1.0-2.8) 10/02/18 09:10 Assessment and Plan (1) Esophageal cancer, stage IV 68-year-old man with newly diagnosed adenocarcinoma of the esophagus with metastasis to the liver. HER2 is negative. His cancer has normal MMR. PD L1 is still pending. I will proceed with scheduled cycle 3 FOLFOX. Patient is aware that the plan is to repeat a CT scan after 2-3 months of treatment depending on his symptomatic response. Patient will be back in 2 weeks for cycle 4 FOLFOX and follow-up with Dr. Thomas.
[2018-10-02 08:44] VITALS: BP 120/73; PULSE 65; RESP 16; TEMP 37.2; O2SAT 98
[2018-10-02 09:19] LABS: Add Manual Diff / Slide Review NO; Basophils Absolute Auto 0 /uL (0-100); Basophils Percent Auto 0.7 % (0-2); Eosinophils Absolute Auto 300 /uL (0-450); Eosinophils Percent Auto 4.6 % (2-4); Hematocrit 36.8 % (41-53); Hemoglobin 12.7 g/dL (13.5-17.5); Lymphocytes Absolute Auto 1600 /uL (1100-4500); Lymphocytes Percent Auto 22.9 % (25-40); Mean Corpuscular HGB Conc 34.5 % (30-36); Mean Corpuscular Hemoglobin 30.1 PG (26-34); Mean Corpuscular Volume 87.4 fL (80-100); Monocytes Absolute Auto 1000 /uL (0-900); Monocytes Percent Auto 14.1 % (3-14); Neutrophils Absolute Auto 4000 /uL (1500-7000); Neutrophils Percent Auto 57.7 % (50-75); Platelet Count 165 X10^3/uL (150-400); Red Blood Cell Count 4.21 X10^6/uL (4.5-5.9)
[2018-10-02 09:44] LABS: Alanine Aminotransferase 19 IU/L (21-72); Albumin 3.9 g/dL (3.5-5.0); Albumin Globulin Ratio 1.3 (1.0-2.8); Alkaline Phosphatase 61 U/L (38-126); Aspartate Aminotransferase 19 IU/L (17-59); BUN Creatinine Ratio 17.5 (6-22); Bilirubin Total 1.5 mg/dL (0.2-1.3); Blood Urea Nitrogen 14 mg/dL (9-20); Calcium 8.9 mg/dL (8.4-10.2); Carbon Dioxide 30 mmol/L (22-32); Chloride 100 mmol/L (98-107); Estimated Glomerular Filt Rate > 60.0 mL/min (>60); Globulin 2.9 g/dL (1.7-4.1); Glucose 101 mg/dL (80-110); HEMOLYSIS < 15 (0-50); Potassium 4.5 mmol/L (3.4-5.1); Sodium 137 mmol/L (137-145); Total Protein 6.8 g/dL (6.3-8.2)
[2018-10-02] MEDS: DEXAMETHASONE 12 MG in SODIUM CHLORIDE 0.9% 50 ML 212 ML IV (10:40)
[2018-10-02] MEDS: ONDANSETRON 16 MG in SODIUM CHLORIDE 0.9% 50 ML 232 ML IV (11:31)
[2018-10-02] MEDS: DEXTROSE 5% IV ×2 (12:17→12:18)
[2018-10-02] MEDS: OXALIPLATIN IV (12:17)
[2018-10-02] MEDS: LEUCOVORIN IV (12:18)
[2018-10-02] MEDS: ISOOSMOTIC VEHICLE IV (15:00)
[2018-10-02] MEDS: FLUOROURACIL IV (15:00)
[2018-10-09 14:08] LABS: Add Manual Diff / Slide Review NO; Basophils Absolute Auto 100 /uL (0-100); Eosinophils Absolute Auto 300 /uL (0-450); Eosinophils Percent Auto 6.3 % (2-4); Hematocrit 36.7 % (41-53); Hemoglobin 12.4 g/dL (13.5-17.5); Lymphocytes Absolute Auto 2100 /uL (1100-4500); Lymphocytes Percent Auto 40.2 % (25-40); Mean Corpuscular HGB Conc 33.9 % (30-36); Mean Corpuscular Hemoglobin 30.1 PG (26-34); Mean Corpuscular Volume 88.7 fL (80-100); Monocytes Absolute Auto 500 /uL (0-900); Monocytes Percent Auto 9.4 % (3-14); Neutrophils Absolute Auto 2200 /uL (1500-7000); Neutrophils Percent Auto 42.1 % (50-75); Platelet Count 214 X10^3/uL (150-400); Red Blood Cell Count 4.13 X10^6/uL (4.5-5.9); Red Cell Distribution Width 15.4 % (11.6-14.8); White Blood Cell Count 5.3 X10^3/uL (4.5-11.0)
[2018-10-09 14:28] LABS: Alanine Aminotransferase 28 IU/L (21-72); Albumin 4.1 g/dL (3.5-5.0); Albumin Globulin Ratio 1.5 (1.0-2.8); Alkaline Phosphatase 53 U/L (38-126); Aspartate Aminotransferase 19 IU/L (17-59); BUN Creatinine Ratio 21.4 (6-22); Blood Urea Nitrogen 15 mg/dL (9-20); Calcium 9.3 mg/dL (8.4-10.2); Carbon Dioxide 30 mmol/L (22-32); Chloride 100 mmol/L (98-107); Estimated Glomerular Filt Rate > 60.0 mL/min (>60); Globulin 2.8 g/dL (1.7-4.1); Glucose 98 mg/dL (80-110); HEMOLYSIS < 15 (0-50); Potassium 4.3 mmol/L (3.4-5.1); Sodium 138 mmol/L (137-145); Total Protein 6.9 g/dL (6.3-8.2)
[2018-10-16 08:35] VITALS: BP 125/69; PULSE 70; RESP 18; TEMP 36.4; O2SAT 98
--- NOTE | 2018-10-16 08:56 | ONC.PN ---
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 FOLFOX x 3 Interval history: The patient is a 68-year-old man who has a history of esophageal cancer with liver metastasis. He has completed 3 cycles of chemotherapy with FOLFOX and is due for his 4th today. He continues to tolerate them fairly well. He has had some nausea that is been lasting up to about 4 or 5 days after the treatment. He has been using some Zofran but not consistently. He has not had any emesis. He continues to get the bulk of his nutrition via his feeding tube. He is able to swallow some liquids but hardly any solid food. He still feels like things are sticking. His pain has been well-controlled with 12 micro g fentanyl patch. He has been using some oxycodone for breakthrough pain but finds that he is not needing to use it as frequently. His bowels have been moving normally. He has not had any mouth sores or skin rash. He does have some neuropathy that last for about a week or so that is aggravated by cold air touching cold things. He thinks it is perhaps a little bit more severe longer lasting than with previous cycles. He has not noted any adenopathy. No shortness of breath or cough. No fevers or chills. He has had perhaps a slight increase in fatigue. He denies any other changes in his health. - Patient Self-Reported Symptoms SR Constitution: Weight loss/gain SR ears, nose, mouth, throat issues: Difficulty swallowing SR Gastrointestinal issues: Diarrhea, Constipation SR Musculoskeletal issues: Cold hands or feet SR Endocrine issues: Cold intolerance Home Medications and Allergies Home Medications Medication Instructions Recorded Confirmed Type nut tx, lactose-reduced, iron 0.09 See Rx Instructions PO QID 30 Days 08/07/18 08/29/18 Rx gram-2.25 kcal/mL oral liquid #237 ml docusate sodium 100 mg PO DAILY 08/29/18 08/29/18 History fluorouracil 4,300 mg IV NOW #1 device 08/29/18 Rx sennosides [Senna Lax] 08/29/18 History acetaminophen [Pain Relief Adult] 650 mg PO Q4-6H PRN #500 ml 09/11/18 Rx fluorouracil 4,300 mg IV NOW #1 device 09/11/18 Rx oxycodone 10 mg PO Q4-6H PRN #800 ml 09/26/18 Rx fentanyl [Duragesic] 1 patch TRANSDERMAL Q72H 30 Days 10/16/18 Rx #10 ea ondansetron 8 mg PO Q8H PRN #30 tab 10/16/18 Rx Allergies Allergy/AdvReac Type Severity Reaction Status Date / Time No Known Drug Allergies Allergy Unverified 06/27/18 10:08 Exam Vital signs: Vital Signs Temp Pulse Resp BP Pulse Ox 10/16/18 08:35 97.6 F 70 18 125/69 98 Intake and Output 10/15/18 10/16/18 10/16/18 23:59 07:59 15:59 Other: Weight 67 kg Patient Weight 10/16/18 23:59 Weight 67 kg - Constitutional positive no acute distress, positive average body habitus - Routine HEENT Exam Head: Present: normocephalic, atraumatic Eye: Present: EOMI, PERRL. Absent: conjunctival icterus, scleral injection ENT: Present: mucous membranes moist, oropharynx clear - Routine Neck Exam Present: supple. Absent: lymphadenopathy, thyromegaly - Routine Chest/Breast/Axilla Exam Chest wall exam standard: Absent: tenderness - Routine Respiratory Exam Present: Clear to auscultation bilaterally. Absent: rales, wheezes - Routine Cardiovascular Exam Present: RRR, S1, S2. Absent: murmur - Routine Abdominal Exam Present: soft, normoactive bowel sounds, mass. Absent: tenderness, organomegaly Comments: A G-tube is in place. There is no purulence or drainage. - Routine Extremities Exam Absent: cyanosis, clubbing, edema - Routine Back/Spine Exam Back/Spine: Absent: vertebral tenderness - Routine Skin Exam Present: intact. Absent: petechiae, rash - Routine Neurological Exam Present: alert, oriented X3 - Routine Psychiatric Exam Present: normal affect, normal thought process Results - Labs Laboratory Last Values WBC 5.3 X10^3/uL (4.5-11.0) 10/09/18 13:55 RBC 4.13 X10^6/uL (4.5-5.9) L 10/09/18 13:55 Hgb 12.4 g/dL (13.5-17.5) L 10/09/18 13:55 Hct 36.7 % (41-53) L 10/09/18 13:55 MCV 88.7 fL (80-100) 10/09/18 13:55 MCH 30.1 PG (26-34) 10/09/18 13:55 MCHC 33.9 % (30-36) 10/09/18 13:55 RDW 15.4 % (11.6-14.8) H 10/09/18 13:55 Plt Count 214 X10^3/uL (150-400) 10/09/18 13:55 Neut % (Auto) 42.1 % (50-75) L 10/09/18 13:55 Lymph % (Auto) 40.2 % (25-40) H 10/09/18 13:55 [place] % (Auto) 9.4 % (3-14) 10/09/18 13:55 Eos % (Auto) 6.3 % (2-4) H 10/09/18 13:55 Baso % (Auto) 2.0 % (0-2) 10/09/18 13:55 Neut # (Auto) 2200 /uL (2741-0153) 10/09/18 13:55 Lymph # (Auto) 2100 /uL (2699-2268) 10/09/18 13:55 [place] # (Auto) 500 /uL (0-900) 10/09/18 13:55 Eos # (Auto) 300 /uL (0-450) 10/09/18 13:55 Baso # (Auto) 100 /uL (0-100) 10/09/18 13:55 Sodium 138 mmol/L (137-145) 10/09/18 13:55 Potassium 4.3 mmol/L (3.4-5.1) 10/09/18 13:55 Chloride 100 mmol/L (98-107) 10/09/18 13:55 Carbon Dioxide 30 mmol/L (22-32) 10/09/18 13:55 BUN 15 mg/dL (9-20) 10/09/18 13:55 Creatinine 0.70 mg/dL (0.66-1.25) 10/09/18 13:55 Estimated GFR > 60.0 mL/min (>60) 10/09/18 13:55 BUN/Creatinine Ratio 21.4 (6-22) 10/09/18 13:55 Glucose 98 mg/dL (80-110) 10/09/18 13:55 Calcium 9.3 mg/dL (8.4-10.2) 10/09/18 13:55 Total Bilirubin 1.0 mg/dL (0.2-1.3) 10/09/18 13:55 AST 19 IU/L (17-59) 10/09/18 13:55 ALT 28 IU/L (21-72) 10/09/18 13:55 Alkaline Phosphatase 53 U/L (38-126) 10/09/18 13:55 Total Protein 6.9 g/dL (6.3-8.2) 10/09/18 13:55 Albumin 4.1 g/dL (3.5-5.0) 10/09/18 13:55 Globulin 2.8 g/dL (1.7-4.1) 10/09/18 13:55 Albumin/Globulin Ratio 1.5 (1.0-2.8) 10/09/18 13:55 Assessment and Plan (1) Esophageal cancer, stage IV 68-year-old man with newly diagnosed adenocarcinoma of the esophagus with metastasis to the liver. HER2 is negative. His cancer has normal MMR. He is tolerating his chemotherapy with the expected side effects and has been clinically stable. Will proceed with his 4th cycle of treatment today. He will return to clinic in about 2 weeks for follow-up. He will be due for restaging CT scan in early November.
[2018-10-16 09:26] LABS: Add Manual Diff / Slide Review NO; Basophils Absolute Auto 100 /uL (0-100); Basophils Percent Auto 1.1 % (0-2); Eosinophils Absolute Auto 300 /uL (0-450); Eosinophils Percent Auto 5.2 % (2-4); Hematocrit 36.5 % (41-53); Hemoglobin 12.7 g/dL (13.5-17.5); Lymphocytes Absolute Auto 1100 /uL (1100-4500); Lymphocytes Percent Auto 21.2 % (25-40); Mean Corpuscular HGB Conc 34.7 % (30-36); Mean Corpuscular Hemoglobin 30.8 PG (26-34); Mean Corpuscular Volume 88.9 fL (80-100); Monocytes Absolute Auto 600 /uL (0-900); Neutrophils Absolute Auto 3200 /uL (1500-7000); Neutrophils Percent Auto 61.5 % (50-75); Platelet Count 151 X10^3/uL (150-400); Red Blood Cell Count 4.11 X10^6/uL (4.5-5.9); Red Cell Distribution Width 17.2 % (11.6-14.8); White Blood Cell Count 5.2 X10^3/uL (4.5-11.0)
[2018-10-16 09:47] LABS: Alanine Aminotransferase 17 IU/L (21-72); Albumin 3.8 g/dL (3.5-5.0); Albumin Globulin Ratio 1.4 (1.0-2.8); Alkaline Phosphatase 48 U/L (38-126); Aspartate Aminotransferase 20 IU/L (17-59); BUN Creatinine Ratio 17.1 (6-22); Bilirubin Total 1.5 mg/dL (0.2-1.3); Blood Urea Nitrogen 12 mg/dL (9-20); Calcium 9.1 mg/dL (8.4-10.2); Carbon Dioxide 28 mmol/L (22-32); Chloride 102 mmol/L (98-107); Estimated Glomerular Filt Rate > 60.0 mL/min (>60); Globulin 2.8 g/dL (1.7-4.1); Glucose 122 mg/dL (80-110); HEMOLYSIS < 15 (0-50); Potassium 4.2 mmol/L (3.4-5.1); Sodium 138 mmol/L (137-145); Total Protein 6.6 g/dL (6.3-8.2)
[2018-10-16] MEDS: DEXAMETHASONE 12 MG in SODIUM CHLORIDE 0.9% 50 ML 212 ML IV (10:16)
[2018-10-16] MEDS: ONDANSETRON 16 MG in SODIUM CHLORIDE 0.9% 50 ML 232 ML IV (10:38)
[2018-10-16] MEDS: DEXTROSE 5 % IN WATER 100 ML 21 ML IV (11:08)
[2018-10-16] MEDS: LEUCOVORIN IV (11:41)
[2018-10-16] MEDS: OXALIPLATIN IV (11:41)
[2018-10-16] MEDS: DEXTROSE 5% IV ×2 (11:41)
[2018-10-16] MEDS: FLUOROURACIL IV (14:16)
[2018-10-16] MEDS: ISOOSMOTIC VEHICLE IV (14:16)
--- NOTE | 2018-10-17 09:02 | PC.NURSE ---
6-11 Initiated CADD pump infusion, blood return prior to attaching pump, green light flashing verified with patient.
[2018-10-18 14:58] VITALS: BP 122/70; PULSE 55; RESP 16; TEMP 36.9; O2SAT 95
--- NOTE | 2018-10-18 15:02 | PC.NURSE ---
CADD pump disconnect, pt tolerated well.
[2018-10-23 15:29] LABS: Add Manual Diff / Slide Review NO; Basophils Absolute Auto 100 /uL (0-100); Basophils Percent Auto 1.1 % (0-2); Eosinophils Absolute Auto 300 /uL (0-450); Eosinophils Percent Auto 6.9 % (2-4); Hematocrit 36.6 % (41-53); Hemoglobin 12.5 g/dL (13.5-17.5); Lymphocytes Absolute Auto 2200 /uL (1100-4500); Mean Corpuscular HGB Conc 34.2 % (30-36); Mean Corpuscular Hemoglobin 30.3 PG (26-34); Mean Corpuscular Volume 88.5 fL (80-100); Monocytes Absolute Auto 500 /uL (0-900); Monocytes Percent Auto 11.6 % (3-14); Neutrophils Absolute Auto 1600 /uL (1500-7000); Neutrophils Percent Auto 34.4 % (50-75); Platelet Count 208 X10^3/uL (150-400); Red Blood Cell Count 4.13 X10^6/uL (4.5-5.9); Red Cell Distribution Width 17.1 % (11.6-14.8); White Blood Cell Count 4.7 X10^3/uL (4.5-11.0)
[2018-10-23 15:43] LABS: Alanine Aminotransferase 48 IU/L (21-72); Albumin 4.1 g/dL (3.5-5.0); Albumin Globulin Ratio 1.5 (1.0-2.8); Alkaline Phosphatase 52 U/L (38-126); Aspartate Aminotransferase 30 IU/L (17-59); BUN Creatinine Ratio 25.7 (6-22); Blood Urea Nitrogen 18 mg/dL (9-20); Calcium 9.3 mg/dL (8.4-10.2); Carbon Dioxide 28 mmol/L (22-32); Chloride 102 mmol/L (98-107); Estimated Glomerular Filt Rate > 60.0 mL/min (>60); Globulin 2.8 g/dL (1.7-4.1); Glucose 90 mg/dL (80-110); HEMOLYSIS < 15 (0-50); Potassium 4.1 mmol/L (3.4-5.1); Sodium 139 mmol/L (137-145); Total Protein 6.9 g/dL (6.3-8.2)
--- NOTE | 2018-10-29 09:43 | ONC.SCHED ---
Scheduled patient's CT for MondayNovember 02 @ 12PM checkin
[2018-10-30 09:07] LABS: Add Manual Diff / Slide Review NO; Basophils Absolute Auto 0 /uL (0-100); Basophils Percent Auto 0.7 % (0-2); Eosinophils Absolute Auto 300 /uL (0-450); Eosinophils Percent Auto 4.8 % (2-4); Hematocrit 36.7 % (41-53); Hemoglobin 12.6 g/dL (13.5-17.5); Lymphocytes Absolute Auto 1400 /uL (1100-4500); Lymphocytes Percent Auto 23.5 % (25-40); Mean Corpuscular HGB Conc 34.2 % (30-36); Mean Corpuscular Hemoglobin 30.9 PG (26-34); Mean Corpuscular Volume 90.2 fL (80-100); Monocytes Absolute Auto 800 /uL (0-900); Monocytes Percent Auto 12.8 % (3-14); Neutrophils Absolute Auto 3600 /uL (1500-7000); Neutrophils Percent Auto 58.2 % (50-75); Platelet Count 167 X10^3/uL (150-400); Red Blood Cell Count 4.07 X10^6/uL (4.5-5.9); Red Cell Distribution Width 18.6 % (11.6-14.8); White Blood Cell Count 6.1 X10^3/uL (4.5-11.0)
[2018-10-30 09:18] LABS: Alanine Aminotransferase 24 IU/L (21-72); Albumin Globulin Ratio 1.4 (1.0-2.8); Alkaline Phosphatase 49 U/L (38-126); Aspartate Aminotransferase 21 IU/L (17-59); BUN Creatinine Ratio 18.8 (6-22); Blood Urea Nitrogen 15 mg/dL (9-20); Calcium 9.2 mg/dL (8.4-10.2); Carbon Dioxide 30 mmol/L (22-32); Chloride 104 mmol/L (98-107); Estimated Glomerular Filt Rate > 60.0 mL/min (>60); Globulin 2.8 g/dL (1.7-4.1); Glucose 114 mg/dL (80-110); HEMOLYSIS < 15 (0-50); Potassium 4.1 mmol/L (3.4-5.1); Sodium 142 mmol/L (137-145); Total Protein 6.8 g/dL (6.3-8.2)
[2018-10-30 10:07] VITALS: BP 135/74; PULSE 53; RESP 16; TEMP 36.7; O2SAT 99
--- NOTE | 2018-10-30 10:28 | ONC.PN ---
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 FOLFOX for 4 cycles so far Interval history: The patient is a 68-year-old man who has a history of esophageal cancer with liver metastasis. He has completed 4 cycles of chemotherapy with FOLFOX and is due for his 5th today. He continues to tolerate them fairly well. He did have an episode shortly after his last cycle we had increased pain in the esophagus and difficulty swallowing. He was struggling to get down even saliva. He took some extra oxycodone which seemed to help his symptoms. Since then, his swallowing has returned to baseline. He is able to get down liquids and smoothies. He feels like soft foods are perhaps sticking a little bit more though. He has had some nausea but no vomiting. His pain has been well controlled with fentanyl patch. He is not having any fevers or chills. He does notice some cold sensitivity and intermittent neuropathy. He is not having any diarrhea. No mouth sores or skin rash. Strength and energy level have been low but stable. His weight has been stable. He denies any other changes in his health. He is scheduled for a CT scan on Monday. - Patient Self-Reported Symptoms SR Constitution: Weight loss/gain SR ears, nose, mouth, throat issues: Difficulty swallowing SR Gastrointestinal issues: Diarrhea, Constipation SR Musculoskeletal issues: Cold hands or feet SR Endocrine issues: Cold intolerance Home Medications and Allergies Home Medications Medication Instructions Recorded Confirmed Type nut tx, lactose-reduced, iron 0.09 See Rx Instructions PO QID 30 Days 08/07/18 08/29/18 Rx gram-2.25 kcal/mL oral liquid #237 ml docusate sodium 100 mg PO DAILY 08/29/18 08/29/18 History fluorouracil 4,300 mg IV NOW #1 device 08/29/18 Rx sennosides [Senna Lax] 08/29/18 History acetaminophen [Pain Relief Adult] 650 mg PO Q4-6H PRN #500 ml 09/11/18 10/30/18 Rx fluorouracil 4,300 mg IV NOW #1 device 09/11/18 Rx fentanyl [Duragesic] 1 patch TRANSDERMAL Q72H 30 Days 10/16/18 Rx #10 ea ondansetron 8 mg PO Q8H PRN #30 tab 10/16/18 Rx oxycodone 10 mg PO Q4-6H PRN #800 ml 10/25/18 Rx Allergies Allergy/AdvReac Type Severity Reaction Status Date / Time No Known Drug Allergies Allergy Unverified 06/27/18 10:08 Exam Vital signs: Vital Signs Temp Pulse Resp BP Pulse Ox 10/30/18 10:07 98.0 F 53 L 16 135/74 99 Intake and Output 10/29/18 10/30/18 10/30/18 23:59 07:59 15:59 Other: Weight 65.5 kg Patient Weight 10/30/18 23:59 Weight 65.5 kg - Constitutional positive no acute distress, positive thin - Routine HEENT Exam Head: Present: normocephalic, atraumatic Eye: Present: EOMI, PERRL. Absent: scleral injection ENT: Present: mucous membranes moist, oropharynx clear - Routine Neck Exam Present: supple. Absent: lymphadenopathy, thyromegaly - Routine Respiratory Exam Present: Clear to auscultation bilaterally. Absent: rales, wheezes - Routine Cardiovascular Exam Present: RRR, S1, S2. Absent: murmur - Routine Abdominal Exam Present: soft, normoactive bowel sounds. Absent: tenderness, organomegaly, mass - Routine Extremities Exam Absent: cyanosis, clubbing, edema - Routine Back/Spine Exam Back/Spine: Absent: vertebral tenderness - Routine Skin Exam Present: intact, cyanosis. Absent: petechiae, rash - Routine Neurological Exam Present: alert, oriented X3 - Routine Psychiatric Exam Present: normal affect, normal thought process Results - Labs Laboratory Last Values WBC 6.1 X10^3/uL (4.5-11.0) 10/30/18 09:00 RBC 4.07 X10^6/uL (4.5-5.9) L 10/30/18 09:00 Hgb 12.6 g/dL (13.5-17.5) L 10/30/18 09:00 Hct 36.7 % (41-53) L 10/30/18 09:00 MCV 90.2 fL (80-100) 10/30/18 09:00 MCH 30.9 PG (26-34) 10/30/18 09:00 MCHC 34.2 % (30-36) 10/30/18 09:00 RDW 18.6 % (11.6-14.8) H 10/30/18 09:00 Plt Count 167 X10^3/uL (150-400) 10/30/18 09:00 Neut % (Auto) 58.2 % (50-75) 10/30/18 09:00 Lymph % (Auto) 23.5 % (25-40) L 10/30/18 09:00 [place] % (Auto) 12.8 % (3-14) 10/30/18 09:00 Eos % (Auto) 4.8 % (2-4) H 10/30/18 09:00 Baso % (Auto) 0.7 % (0-2) 10/30/18 09:00 Neut # (Auto) 3600 /uL (2077-8269) 10/30/18 09:00 Lymph # (Auto) 1400 /uL (3640-4700) 10/30/18 09:00 [place] # (Auto) 800 /uL (0-900) 10/30/18 09:00 Eos # (Auto) 300 /uL (0-450) 10/30/18 09:00 Baso # (Auto) 0 /uL (0-100) 10/30/18 09:00 Sodium 142 mmol/L (137-145) 10/30/18 09:00 Potassium 4.1 mmol/L (3.4-5.1) 10/30/18 09:00 Chloride 104 mmol/L (98-107) 10/30/18 09:00 Carbon Dioxide 30 mmol/L (22-32) 10/30/18 09:00 BUN 15 mg/dL (9-20) 10/30/18 09:00 Creatinine 0.80 mg/dL (0.66-1.25) 10/30/18 09:00 Estimated GFR > 60.0 mL/min (>60) 10/30/18 09:00 BUN/Creatinine Ratio 18.8 (6-22) 10/30/18 09:00 Glucose 114 mg/dL (80-110) H 10/30/18 09:00 Calcium 9.2 mg/dL (8.4-10.2) 10/30/18 09:00 Total Bilirubin 1.0 mg/dL (0.2-1.3) 10/30/18 09:00 AST 21 IU/L (17-59) 10/30/18 09:00 ALT 24 IU/L (21-72) 10/30/18 09:00 Alkaline Phosphatase 49 U/L (38-126) 10/30/18 09:00 Total Protein 6.8 g/dL (6.3-8.2) 10/30/18 09:00 Albumin 4.0 g/dL (3.5-5.0) 10/30/18 09:00 Globulin 2.8 g/dL (1.7-4.1) 10/30/18 09:00 Albumin/Globulin Ratio 1.4 (1.0-2.8) 10/30/18 09:00 Assessment and Plan (1) Esophageal cancer, stage IV 68-year-old man with newly diagnosed adenocarcinoma of the esophagus with metastasis to the liver. HER2 is negative. His cancer has normal MMR. He is tolerating his chemotherapy with the expected side effects and has been clinically stable. Will proceed with his 5th cycle of treatment today. He will return to clinic in about 2 weeks for follow-up. We discussed potential therapeutic implications of his upcoming CT. If he has evidence of response, we will continue with his current regimen. If there is evidence of progression, we would need to stop his current therapy and think about other options, potentially Taxol with ramucirimab or immunotherapy although his mismatch repair enzymes were intact. If he has stable disease, we generally consider continuing his therapy. However, given his small following difficulties it might be reasonable to think about radiation or perhaps a stent if necessary. He will return to clinic in about 2 weeks for follow-up.
[2018-10-30] MEDS: ONDANSETRON 16 MG in SODIUM CHLORIDE 0.9% 50 ML 232 ML IV (11:28)
[2018-10-30] MEDS: LEUCOVORIN IV (12:50)
[2018-10-30] MEDS: DEXTROSE 5% IV ×2 (12:50→12:51)
[2018-10-30] MEDS: OXALIPLATIN IV (12:51)
[2018-10-30] MEDS: DEXTROSE 5 % IN WATER 100 ML 21 ML IV (13:47)
[2018-10-30] MEDS: OXYCODONE 5 MG/5 ML ORAL SOLUTION 10 MG PO (14:50)
[2018-10-30] MEDS: FLUOROURACIL IV (15:32)
[2018-10-30] MEDS: ISOOSMOTIC VEHICLE IV (15:32)
--- NOTE | 2018-10-31 08:55 | PC.NURSE ---
CADD pump connect, blood return, checked with CEM RN. Green light verified with patient. Extra battery given.
[2018-11-01 14:37] VITALS: BP 108/58; PULSE 52; RESP 16; TEMP 36.7; O2SAT 98
--- NOTE | 2018-11-01 15:03 | PC.NURSE ---
pump disconnected; port flushed and de accessed
[2018-11-07 09:19] LABS: Add Manual Diff / Slide Review NO; Basophils Absolute Auto 100 /uL (0-100); Eosinophils Absolute Auto 300 /uL (0-450); Eosinophils Percent Auto 4.7 % (2-4); Hematocrit 38.2 % (41-53); Hemoglobin 12.9 g/dL (13.5-17.5); Lymphocytes Absolute Auto 1700 /uL (1100-4500); Lymphocytes Percent Auto 25.1 % (25-40); Mean Corpuscular HGB Conc 33.7 % (30-36); Mean Corpuscular Hemoglobin 30.8 PG (26-34); Mean Corpuscular Volume 91.5 fL (80-100); Monocytes Absolute Auto 800 /uL (0-900); Neutrophils Absolute Auto 4000 /uL (1500-7000); Neutrophils Percent Auto 57.2 % (50-75); Platelet Count 213 X10^3/uL (150-400); Red Blood Cell Count 4.18 X10^6/uL (4.5-5.9); Red Cell Distribution Width 17.6 % (11.6-14.8); White Blood Cell Count 6.9 X10^3/uL (4.5-11.0)
[2018-11-07 09:20] VITALS: BP 128/78; PULSE 65; RESP 16; TEMP 36.7; O2SAT 99
[2018-11-07 09:32] LABS: Alanine Aminotransferase 36 IU/L (21-72); Albumin 4.2 g/dL (3.5-5.0); Albumin Globulin Ratio 1.4 (1.0-2.8); Alkaline Phosphatase 58 U/L (38-126); Aspartate Aminotransferase 25 IU/L (17-59); BUN Creatinine Ratio 18.8 (6-22); Blood Urea Nitrogen 15 mg/dL (9-20); Calcium 9.4 mg/dL (8.4-10.2); Carbon Dioxide 26 mmol/L (22-32); Chloride 106 mmol/L (98-107); Estimated Glomerular Filt Rate > 60.0 mL/min (>60); Glucose 121 mg/dL (80-110); HEMOLYSIS < 15 (0-50); Sodium 142 mmol/L (137-145); Total Protein 7.2 g/dL (6.3-8.2)
--- NOTE | 2018-11-07 09:56 | ONC.PN ---
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 FOLFOX for 5 cycles so far Interval history: The patient is a 68-year-old man who has a history of esophageal cancer with liver metastasis. He has completed 5 cycles of chemotherapy with FOLFOX. Since his last visit here, he has been feeling about the same. He continues to struggle with thick salivary secretions. He is able to swallow only if you liquids. He is getting almost all of his nutrition via his feeding tube. Despite this, he has continued to lose a few more lb. He is using a fentanyl patch as well as oxycodone and has adequate control of his pain. Strength and energy level have been low but stable. He has had some intermittent paresthesias from his oxaliplatin but overall does not find the particularly bothersome. No fevers or chills. No shortness of breath. He has not noticed any adenopathy. He denies any other changes in his health. - Patient Self-Reported Symptoms SR Constitution: Weight loss/gain SR ears, nose, mouth, throat issues: Difficulty swallowing SR Gastrointestinal issues: Diarrhea, Constipation SR Musculoskeletal issues: Cold hands or feet SR Endocrine issues: Cold intolerance Home Medications and Allergies Home Medications Medication Instructions Recorded Confirmed Type nut tx, lactose-reduced, iron 0.09 See Rx Instructions PO QID 30 Days 08/07/18 08/29/18 Rx gram-2.25 kcal/mL oral liquid #237 ml docusate sodium 100 mg PO DAILY 08/29/18 08/29/18 History fluorouracil 4,300 mg IV NOW #1 device 08/29/18 Rx sennosides [Senna Lax] 08/29/18 History acetaminophen [Pain Relief Adult] 650 mg PO Q4-6H PRN #500 ml 09/11/18 10/30/18 Rx fluorouracil 4,300 mg IV NOW #1 device 09/11/18 Rx ondansetron 8 mg PO Q8H PRN #30 tab 10/16/18 Rx fentanyl [Duragesic] 1 patch TRANSDERMAL Q72H 30 Days 11/07/18 Rx #10 ea oxycodone 10 mg PO Q4-6H PRN #800 ml 11/07/18 Rx Allergies Allergy/AdvReac Type Severity Reaction Status Date / Time No Known Drug Allergies Allergy Unverified 06/27/18 10:08 Exam Vital signs: Vital Signs Temp Pulse Resp BP Pulse Ox 11/07/18 09:20 98.0 F 65 16 128/78 99 Intake and Output 11/06/18 11/07/18 11/07/18 23:59 07:59 15:59 Other: Weight 63.5 kg Patient Weight 11/07/18 23:59 Weight 63.5 kg - Constitutional positive no acute distress, positive thin Comments: He was not further examined. Results - Labs Laboratory Last Values WBC 6.9 X10^3/uL (4.5-11.0) 11/07/18 09:05 RBC 4.18 X10^6/uL (4.5-5.9) L 11/07/18 09:05 Hgb 12.9 g/dL (13.5-17.5) L 11/07/18 09:05 Hct 38.2 % (41-53) L 11/07/18 09:05 MCV 91.5 fL (80-100) 11/07/18 09:05 MCH 30.8 PG (26-34) 11/07/18 09:05 MCHC 33.7 % (30-36) 11/07/18 09:05 RDW 17.6 % (11.6-14.8) H 11/07/18 09:05 Plt Count 213 X10^3/uL (150-400) 11/07/18 09:05 Neut % (Auto) 57.2 % (50-75) 11/07/18 09:05 Lymph % (Auto) 25.1 % (25-40) 11/07/18 09:05 [place] % (Auto) 12.0 % (3-14) 11/07/18 09:05 Eos % (Auto) 4.7 % (2-4) H 11/07/18 09:05 Baso % (Auto) 1.0 % (0-2) 11/07/18 09:05 Neut # (Auto) 4000 /uL (4044-9292) 11/07/18 09:05 Lymph # (Auto) 1700 /uL (5782-8356) 11/07/18 09:05 [place] # (Auto) 800 /uL (0-900) 11/07/18 09:05 Eos # (Auto) 300 /uL (0-450) 11/07/18 09:05 Baso # (Auto) 100 /uL (0-100) 11/07/18 09:05 Sodium 142 mmol/L (137-145) 11/07/18 09:05 Potassium 4.0 mmol/L (3.4-5.1) 11/07/18 09:05 Chloride 106 mmol/L (98-107) 11/07/18 09:05 Carbon Dioxide 26 mmol/L (22-32) 11/07/18 09:05 BUN 15 mg/dL (9-20) 11/07/18 09:05 Creatinine 0.80 mg/dL (0.66-1.25) 11/07/18 09:05 Estimated GFR > 60.0 mL/min (>60) 11/07/18 09:05 BUN/Creatinine Ratio 18.8 (6-22) 11/07/18 09:05 Glucose 121 mg/dL (80-110) H 11/07/18 09:05 Calcium 9.4 mg/dL (8.4-10.2) 11/07/18 09:05 Total Bilirubin 1.0 mg/dL (0.2-1.3) 11/07/18 09:05 AST 25 IU/L (17-59) 11/07/18 09:05 ALT 36 IU/L (21-72) 11/07/18 09:05 Alkaline Phosphatase 58 U/L (38-126) 11/07/18 09:05 Total Protein 7.2 g/dL (6.3-8.2) 11/07/18 09:05 Albumin 4.2 g/dL (3.5-5.0) 11/07/18 09:05 Globulin 3.0 g/dL (1.7-4.1) 11/07/18 09:05 Albumin/Globulin Ratio 1.4 (1.0-2.8) 11/07/18 09:05 - Imaging CT scan - abdomen: image reviewed CT scan - chest: image reviewed CT scan - pelvis: image reviewed (Evidence of increased liver metastasis.) Assessment and Plan (1) Esophageal cancer, stage IV 68-year-old man with newly diagnosed adenocarcinoma of the esophagus with metastasis to the liver. HER2 is negative. His cancer has normal MMR. He is tolerating his chemotherapy with the expected side effects and has been clinically stable. Unfortunately, he has evidence of progressive disease by CT scan. He has not really had any improvement in his symptoms with his chemotherapy in continues to struggle with swallowing. His pain has been stable. We discussed additional treatment options. The 1st would be Taxol with ramucirimab. This has shown an improvement in survival that is modest. Response rate is probably on the order about 20% or so. Side effects would include alopecia nausea vomiting myelosuppression risk for allergic reaction and neuropathy. We also discussed the possibility of immunotherapy. Response rate to be fairly low but if he did respond could be potentially long-lasting. I think the likely to responses probably 10% her last period side effects would include primarily autoimmune phenomenon such as colitis dermatitis pneumonitis or thyroiditis. We also talked about supportive care or hospice. The patient is a little bit interested in alternative therapies or cannabis. He is not sure whether he really will pursue this however. At this point, he is favoring a palliative approach with hospice. Will make a referral for him. If he changes his mind and does want to pursue additional therapy we could consider that in the future. I have not scheduled a follow-up appointment for him but would be happy see him again in the future. 40 minutes was spent with the patient the majority in counseling.
== END ==
PROVIDERS: PCP Family Medicine
DX: C15.5 Malignant neoplasm of lower third of esophagus (principal); C78.7 Secondary malignant neoplasm of liver and intrahepatic bile duct
CPT/HCPCS: 36591; 36592; 80053; 85025; 96368; 96375; 96409; 96411; 96413; 96415; 96523; 99205; 99214; 99215; J0640; J1100; J2405; J9190; J9263

== ENCOUNTER → 2018-11-21 09:24 | Outpatient (CLI) | payer SELFPAY ==
[2018-11-26 10:42] LABS: Glucose-6-Phosphate Dehydrogen 13.8 U/g Hgb (7.0-20.5)
== END ==
PROVIDERS: PCP Family Medicine; Visit Provider Naturopath
DX: C16.9 Malignant neoplasm of stomach, unspecified (principal); E86.0 Dehydration
CPT/HCPCS: 36415; 82955

== ENCOUNTER 2019-01-04 10:03 | Inpatient (IN) | payer OTHER, MEDICARE, SELFPAY ==
[2019-01-04] VITALS (17 sets, daily range): BP systolic 104–170; BP diastolic 60–87; PULSE 56–91; RESP 9–18; TEMP 36.9–38.5; O2SAT 89–98
[2019-01-04] MEDS: SODIUM CHLORIDE 0.9% 1,000 ML 200 ML IV (10:30)
[2019-01-04] MEDS: NALOXONE 0.4 MG/ML VIAL (10:30)
--- NOTE | 2019-01-04 10:30 | ED.OVERDOSE ---
HPI - Overdose General Chief Complaint: Shortness of Breath/Dyspnea Stated Complaint: Overdose Time Seen by Provider: 01/04/19 10:14 Source: patient and EMS Mode of arrival: EMS Limitations: no limitations History of Present Illness HPI Narrative: Patient comes emergency department after being given 300 mg of methadone instead of his normal 30 mg, according to his hospice physician. According to medics, patient's sisters were in charge of giving his medicines, and accidentally gave him too much after becoming confused about new dosing. Patient states his pain is doing better, but the patient has required 2 doses of Narcan en route by medics, due to respiratory suppression. Medics state that when they arrived, the patient had very shallow agonal respirations and was unresponsive. His sats were 56% on room air. He immediately responded very well to Narcan, although he is now nauseated. Patient is on hospice care after developing esophageal cancer, which is terminal. He has a G tube for feedings. No other complaints at this time. Related Data Home Medications Medication Instructions Recorded Confirmed sennosides [Senna Lax] 25.8 mg PO TID 08/29/18 01/04/19 acetaminophen 640 mg PO Q6H PRN 01/04/19 01/04/19 clonazepam 2 mg PO Q4H PRN 01/04/19 01/04/19 dexamethasone [Dexamethasone 1 mg PO DAILY 01/04/19 01/04/19 Intensol] glycopyrrolate 2 mg PO BID PRN 01/04/19 01/04/19 heparin lock flush (porcine) 500 unit IV Q4W 01/04/19 01/04/19 lactulose 15 - 120 ml PO DAILY PRN MDD 60 ml 01/04/19 01/04/19 bid lidocaine (PF) 0.15 - 0.3 ml SUBCUT Q4W 01/04/19 01/04/19 magnesium citrate 250 ml PO DAILY PRN 01/04/19 01/04/19 methadone [Methadone Intensol] 30 mg PO Q12H 01/04/19 01/04/19 metoclopramide HCl 10 mg PO QID 01/04/19 01/04/19 olanzapine 2.5 mg PO Q6H PRN 01/04/19 01/04/19 ondansetron 8 mg PO BID 01/04/19 01/04/19 ondansetron 8 mg PO DAILY PRN 01/04/19 01/04/19 oxycodone 30 mg PO Q3H PRN 01/04/19 01/04/19 sennosides [senna] 8.6 - 34.4 mg PO BID PRN MDD 4 tab 01/04/19 01/04/19 bid sodium chloride 0.9 % (flush) 20 ml IV Q4W 01/04/19 01/04/19 [Normal Saline Flush] Allergies Allergy/AdvReac Type Severity Reaction Status Date / Time No Known Drug Allergies Allergy Verified 01/04/19 11:38 Review of Systems Constitutional Constitutional: Denies chills, Denies fatigue, Denies fever(s), Denies frequent falls, Denies lethargy and Denies weakness Eyes Eyes: Denies change in vision, Denies eye discharge, Denies irritation and Denies loss of vision ENT Ears, Nose, Mouth, and Throat: Denies change in voice, Denies dizziness, Denies neck pain, Denies sore throat and Denies throat swelling Cardiovascular Cardiovascular: Denies chest pain, Denies irregular heart rhythm, Denies lightheadedness, Denies palpitations, Denies dyspnea, Denies dyspnea on exertion and Denies orthopnea Respiratory Respiratory: Denies cough, Denies dyspnea, Denies dyspnea on exertion and Denies wheezing Comments: Respiratory depression Gastrointestinal Gastrointestinal: Denies abdominal pain, Denies change in bowel habits, Denies diarrhea, Reports nausea and Reports vomiting Genitourinary Genitourinary: Denies hematuria, Denies flank pain, Denies urinary incontinence and Denies urinary urgency Musculoskeletal Musculoskeletal: Denies back pain, Denies muscle weakness, Denies neck pain, Denies numbness and Denies tingling Integumentary/Breasts Skin/Breast: Denies pruritus, Denies erythema, Denies rash and Denies wounds Neurologic Neurologic: Denies behavioral changes, Denies confusion, Denies dizziness, Denies frequent falls, Denies loss of vision, Denies numbness, Denies tingling and Denies weakness Comments: Drowsiness Psychiatric Psychiatric: Denies anxiety, Denies behavioral changes, Denies confusion, Denies depression, Denies homicidal ideation and Denies suicidal ideation Endocrine Endocrine: Denies fatigue, Denies flushing and Denies palpitations Hematologic/Lymphatic Hematologic/Lymphatic: Denies easy bruising Allergic/Immunologic Allergic/Immunologic: Denies urticaria, Denies throat swelling and Denies wheezing [facility] Medical History Dysphagia (Acute) Epigastric pain (Acute) Hypercholesterolemia (Acute) Tobacco use (Acute) Surgical History H/O hernia repair (Resolved ~2001) History of colonoscopy (Acute) History of hernia repair (Acute) Family History Father Hypertension Stroke Sister Pancreatic cancer Social History household members: children occupational status: previously employed Smoking Status: Current every day smoker alcohol intake: current substance use type: does not use Family History Father Hypertension Stroke Sister Pancreatic cancer Social History household members: family and children occupational status: previously employed Smoking Status: Current every day smoker alcohol intake: current substance use type: does not use Exam Initial Vital Signs Initial Vital Signs: Vital Signs Temperature 101.3 F H 01/04/19 10:00 Pulse Rate 91 H 01/04/19 10:00 Respiratory Rate 18 01/04/19 10:00 Blood Pressure 110/78 01/04/19 10:00 Pulse Oximetry 92 01/04/19 10:00 Const General: cooperative and well developed Nutritional Appearance: well nourished Orientation: alert, awake, oriented x3 and not confused [facility] Head: normocephalic and atraumatic Ears: external ears normal and TM's normal bilaterally Nose: external nose normal and No nasal discharge Face and sinus: sinuses nontender, face symmetric, no sinus tenderness and No dry mucous membranes Mouth: oral mucosae normal and moist mucous membranes Teeth and gingiva: dentition normal Throat: tonsils normal and uvula midline Eyes General: appearance normal, both eyes and all related structures Eyelids: eyelids normal Conjunctivae: conjunctivae normal Sclera: sclerae normal Pupils: PERRL EOM: EOM intact bilaterally Neck Neck: normal visual inspection, trachea midline, No lymphadenopathy, No midline deformity and No JVD Lymphatic: No lymphedema Chest Chest: normal inspection of the chest Resp Effort & Inspection: normal respiratory effort, able to speak in complete sentences, no respiratory distress and no use of accessory muscles Auscultation: clear to auscultation bilaterally, no rales, no rhonchi and no wheezes Cardio Rate: regular rate Rhythm: regular rhythm Heart Sounds: no click, no gallops, no murmurs and no rubs Pulses: normal peripheral pulses GI Inspection: non-distended Palpation: soft, no hepatosplenomegaly, No guarding, No pulsatile mass and No tender Other: Patient's initially actively vomiting. Back/Spine/Pelvis Back: No CVA tenderness Cervical Spine: cervical ROM normal and No pain with cervical ROM Thoracic/Lumbar Spine: thoracic and lumbar spine normal to inspection Skin General: no rashes or lesions noted, No jaundice and No petechiae Neuro General: alert, awake, oriented x3, no focal motor deficits and CN's II-XI intact bilaterally Speech: speech normal Motor: muscle tone normal throughout Other: Patient is alert and appropriate upon arrival, but does become drowsy during my exam. He is given further Narcan, and responds very well to this. Extrem General: full ROM, no clubbing, cyanosis or edema, no pedal edema and no calf tenderness Psych Appearance: well kempt Mental Status: mental status grossly normal Attitude: cooperative Thought Content: normal and suicidality Judgment: judgment good Course Course Course Narrative: Patient was placed on the teletypesetter monitor and pulse oximeter, and was given a dose of 0.1 mg of Narcan shortly after arrival. I ordered a Narcan drip, starting a 0.25 mcg/per/kg per minute. Patient initially responded to this, but began to become increasingly drowsy, and had to have his drip repeatedly titrated up. I spoke with Poison Control, who stated that the methadone would likely be a maximal effect for at least the next 24 [address] I spoke with Dr. Knowles, who agreed to admit the patient to ICU for monitoring and Narcan drip. Given the patient's hospice status, no laboratory studies were obtained. Orders Ordered: ED Orders 01/04/19 12:54 Education, smoking cessation ONGOING Acetaminophen (Tylenol) 650 mg PO Q6HR PRN PRN Reason: As Needed for Fever/Mild Pain Al Hydrox/Mg Hydrox/Simethicone (Maalox Plus) 30 ml PO Q6HR PRN PRN Reason: Dyspepsia Bisacodyl (Dulcolax) 10 mg [place] DAILY PRN PRN Reason: Constipation Calcium Carbonate (Tums) 1,000 mg PO Q4HR PRN PRN Reason: Dyspepsia Docusate Sodium (Colace) 100 mg PO BID PRN PRN Reason: Constipation Heparin Sodium (Porcine) (Heparin) 5,000 unit SUBCUT BID [facility] Naloxone HCl 2 mg/ Sodium (Chloride) 502 mls @ 30.06 mls/hr IV NOW ONE Stop: 01/05/19 03:11 Last Infusion: 01/04/19 18:41 Dose: 42 mls/hr Documented by: Infusion: 01/04/19 14:29 Dose: 50 mls/hr Documented by: Infusion: 01/04/19 14:23 Dose: 0 mls/hr Documented by: Infusion: 01/04/19 11:27 Dose: 50 mls/hr Documented by: Infusion: 01/04/19 11:12 Dose: 40 mls/hr Documented by: Infusion: 01/04/19 11:00 Dose: 33 mls/hr Documented by: Admin: 01/04/19 10:36 Dose: 30.06 mls/hr Documented by: LINDA Sodium Chloride (Normal Saline 0.9%) 1,000 mls @ 100 mls/hr IV CONT STEFANY Last Admin: 01/04/19 15:05 Dose: 100 mls/hr Documented by: Admin: 01/04/19 15:03 Dose: Not Given Documented by: ESTEPHANIA Magnesium Hydroxide (Milk Of Magnesia) 30 ml PO DAILY PRN PRN Reason: Constipation Naloxone HCl (Narcan) 0.2 mg IV Q2MIN PRN PRN Reason: Opiate Reversal Ondansetron HCl (Zofran) 4 mg IV Q2HR PRN PRN Reason: Nausea And Vomiting Stop: 01/05/19 10:27 Ondansetron HCl (Zofran) 4 mg IV Q8HR PRN PRN Reason: Nausea And Vomiting Discontinued Medications Sodium Chloride (Normal Saline 0.9%) 1,000 mls @ 200 mls/hr IV BOLUS ONE Stop: 01/04/19 15:27 Last Infusion: 01/04/19 15:04 Dose: 0 mls/hr Documented by: Infusion: 01/04/19 14:21 Dose: 0 mls/hr Documented by: Admin: 01/04/19 10:30 Dose: 200 mls/hr Documented by: LINDA Vital Signs Vital signs: Vital Signs - 8 hr 01/04/19 13:08 Pulse Rate 71 Respiratory Rate 12 Blood Pressure [Right Arm] 113/66 Pulse Oximetry 94 MDM - Overdose Medical Records Attestation: I reviewed the patient's medical records. Critical Care Time Critical Care Time Critical Care Time: Yes Total Critical Care Time: 45 Attestation: Critical care time was necessary, due to high probability of imminent decline and , secondary to long-acting opioid overdose. Critical care time is exclusive of separately billable procedures. Critical care time included: Interviewing and examining the patient, evaluating cardiac output, evaluating oxygen saturation, discussion with consultants, discussion with family, re-examining the patient, and documentation. Discharge Plan Departure Patient Disposition: Admitted as Observation Clinical Impression: Opiate overdose Qualifiers: Encounter type: initial encounter Injury intent: accidental or unintentional Qualified Code(s): T40.601A - Poisoning by unspecified narcotics, accidental (unintentional), initial encounter Discharge Date/Time: 01/04/19 14:27 Admit Date/Time: 01/04/19 13:58 Admit Provider: Jossie Knowles
[2019-01-04] MEDS: NALOXONE 2 MG in SODIUM CHLORIDE 0.9% 500 ML 30.06 ML IV (10:36)
[2019-01-04] MEDS: SODIUM CHLORIDE 0.9% 1,000 ML 100 ML IV (15:05)
--- NOTE | 2019-01-04 15:24 | PC.NURSE ---
pt arrived at 1430 from ed- he denies pain at this time- nervous about having pain, talked extensively to him about this-narcan gtt remains at 0.2mg/h along with 100cc/h ns via port a cath, also with peripheral line- nsr with 1st degree avb/bbb- g-tube to mid abdomen, o2 @ 4l nc
--- NOTE | 2019-01-04 19:20 | PC.NURSE ---
Please see frequent vital signs on paper.
[2019-01-04] MEDS: HEPARIN 5,000 UNIT/ML VIAL 5000 UNIT SUBCUT (22:35)
[2019-01-05] VITALS (11 sets, daily range): BP systolic 112–156; BP diastolic 59–75; PULSE 52–58; RESP 12–19; TEMP 36.4–37.1; O2SAT 93–99
[2019-01-05] MEDS: ONDANSETRON 4 MG/2 ML INJ IV ×2 (00:12→06:43)
[2019-01-05] MEDS: SODIUM CHLORIDE 0.9% 1,000 ML 100 ML IV (00:13)
--- NOTE | 2019-01-05 00:14 | P.HP_ITS ---
History of Present Illness History of Present Illness Date Patient Seen: 01/04/19 Time Patient Seen: 19:55 Chief complaint: Overdose Narrative: Mr. Jhony Max is a 68 year male patient with a history significant for adenocarcinoma the esophagus, metastases to the liver, dysphagia, no abnormal weight lost status post gastric tube placement who presents to the ER via EMS following an accidental opiate overdose. The patient is under the care of hospice and had a does change in his methadone yesterday precipitating a dosing air by family members resulting in the patient receiving 10 times the intended dose. The patient was found unresponsive and EMS was hoyt mmoned. The patient was found to have agonal respirations and a room air pulse ox of 56%. The patient reports orthostatic dizziness but denies headaches. He has had difficulty swallowing with dysphagia but is able to take oral liquid medications. He denies chest pain palpitations, reports no shortness of breath, cough or wheeze. He has epigastric pain that is nonradiating with persistent na usea for which she has been taking Reglan and Zofran. He has a bowel regimen in place and denies constipation. The patient responded to Narcan was transported to the emergency department. On arrival the patient was afebrile with temperature 98.9?, bradycardic with a rate 59, blood pressure 112/67, respirations 16 saturating 96% on 2 L nasal cannula. The patient required repeat does Narcan was started on Narcan drip. Following Narcan administration he became nausea received Zofran. Patient also received a L bolus of normal saline. On laboratory analysis his white count of 6.9, hemoglobin of 12.9, hematocrit of 38.2 and platelets of 213. His electrolytes are all within normal range as well as his chemistry panel. His nonfasting glucose is 121. The patient is admitted for ongoing Narcan infusion secondary to accidental overdose of 300 mg of methadone. Patient History Medical History (Updated 01/05/19 @ 00:28 by TORSTEN Russell) Adenocarcinoma of lower esophagus (Acute) Dysphagia (Acute) Epigastric pain (Acute) Hypercholesterolemia (Acute) Tobacco use (Acute) Surgical History (Updated 01/05/19 @ 00:28 by TORSTEN Russell) H/O hernia repair (Resolved ~2001) History of colonoscopy (Acute) History of hernia repair (Acute) History of vascular access device (Acute) Family History Father Hypertension Stroke Sister Pancreatic cancer Social History household members: family and children occupational status: previously employed Smoking Status: Current every day smoker alcohol intake: current substance use type: does not use Family & Social History Family History Father Hypertension Stroke Sister Pancreatic cancer Social History: household members family,children Prior Living Arrangements House Safety & Behavioral: Feels Safe in Current Yes Environment Been Physically Hurt or No Threatened By a Person Suicidal Ideation Description None Tobacco & Substance use: Smoking Status Current every day smoker alcohol intake current alcohol intake frequency 0-2 drinks per day Substance Use Type does not use Comment: The patient is and lives in a single family home with family. Patient's father has a history of hypertension stroke and he has a sister with a history of pancreatic cancer. Smoking: Daily Alcohol: Occasional alcohol consumption Substance use: No recreational pharmaceuticals, herbal or cannabis products. Advanced directives: The patient is on hospice with advanced directives indicating DO NOT RESUSCITATE. Hospice records indicate the patient's daughter leila holds DPOA ([phone]). Meds Home Medications and Allergies Home Medications Medication Instructions Recorded Confirmed Type sennosides [Senna Lax] 25.8 mg PO TID 08/29/18 01/04/19 History acetaminophen 640 mg PO Q6H PRN 01/04/19 01/04/19 History clonazepam 2 mg PO Q4H PRN 01/04/19 01/04/19 History dexamethasone [Dexamethasone 1 mg PO DAILY 01/04/19 01/04/19 History Intensol] glycopyrrolate 2 mg PO BID PRN 01/04/19 01/04/19 History heparin lock flush (porcine) 500 unit IV Q4W 01/04/19 01/04/19 History lactulose 15 - 120 ml PO DAILY PRN MDD 60 ml 01/04/19 01/04/19 History bid lidocaine (PF) 0.15 - 0.3 ml SUBCUT Q4W 01/04/19 01/04/19 History magnesium citrate 250 ml PO DAILY PRN 01/04/19 01/04/19 History methadone [Methadone Intensol] 30 mg PO Q12H 01/04/19 01/04/19 History metoclopramide HCl 10 mg PO QID 01/04/19 01/04/19 History olanzapine 2.5 mg PO Q6H PRN 01/04/19 01/04/19 History ondansetron 8 mg PO BID 01/04/19 01/04/19 History ondansetron 8 mg PO DAILY PRN 01/04/19 01/04/19 History oxycodone 30 mg PO Q3H PRN 01/04/19 01/04/19 History sennosides [senna] 8.6 - 34.4 mg PO BID PRN MDD 4 tab 01/04/19 01/04/19 History bid sodium chloride 0.9 % (flush) 20 ml IV Q4W 01/04/19 01/04/19 History [Normal Saline Flush] Allergies Allergy/AdvReac Type Severity Reaction Status Date / Time No Known Drug Allergies Allergy Verified 01/04/19 11:38 Review of Systems Review of Systems ROS Unobtainable: All systems reviewed & are unremarkable except as noted in HPI and below Exam Vital Signs (past 8 hours): - 01/04/19 20:00 Temperature 98.5 F Pulse Rate 56 L Respiratory Rate 10 L Blood Pressure 125/62 Pulse Oximetry 96 Oxygen Delivery Method Nasal Cannula Oxygen Flow Rate 2 Narrative Exam Narrative: GENERAL APPEARANCE: well developed, cachectic appearing, BMI 20.0, in no acute distress. HEAD: Normocephalic, atraumatic, no scalp lesions. EYES: pupils equal, round, reactive to light and accommodation, sclera non- icteric, extraocular movement intact without nystagmus. EARS: normal external structures, no ear pain NOSE: sinuses non tender to percussion, no rhinorrhea ORAL CAVITY: Dry oral mucous membranes, no lesions or exudate, own dentition, tongue in midline. THROAT: normal, no erythema, no exudate, posterior pharynx normal. NECK/THYROID: neck supple, no jugular venous distention, no carotid bruit, no thyromegaly, trachea midline. LYMPH NODES: no cervical or supraclavicular lymphadenopathy. SKIN: warm and dry, no suspicious lesions, no rashes, good turgor. HEART: regular rate and rhythm, S1-S2 without murmur, no rubs or gallops, brisk capillary refill, no edema LUNGS: clear to auscultation bilaterally, no coarseness crackles or wheezing, no cough present CHEST: Access port right upper chest, symmetrical movement, no accessory muscle use, no pain to AP and lateral compression. ABDOMEN: Soft, tympanitic to percussion, epigastric pain on palpation, no lower abdominal or flank pain, no guarding or peritoneal signs, no organomegaly, active bowel tones, patent G-tube left upper quadrant without redness or erosion. BACK: Normal curvature, nontender to palpation. EXTREMITIES: moves all extremities, strength is 5/5 and symmetrical, no deformities or joint effusions. NEUROLOGIC: AAO x4, no focal neurologic deficits, cognitively intact, sensory exam intact to light touch, hearing grossly normal to speech. PSYCH: alert, briskly responsive, cooperative, good eye contact, appropriate with stable behavior Objective Labs Labs: Laboratory Results - last 24 hr 01/04/19 14:20 Nasal Screen MRSA (PCR) Negative for mrsa Assessment & Plan Assessment & Plan narrative: The patient is admitted to the hospital as a hospice general inpatient requiring monitoring and titration of Narcan drip following accidental overdose with 300 mg of methadone. 1. Acute hypoxic respiratory failure, present on admission, active. -patient was acutely hypoxemic related to respiratory depression following accidental opiate overdose. -will treat underlying cause of respiratory depression -oxygen nasal cannula as needed to keep saturation greater than or equal to 93%. 2. Acute accidental opiate overdose, present on admission, active. -the patient accidentally received a 300 mg dose of methadone. -patient requires ongoing Narcan infusion which is titrated to pain level and respiratory status. Infusion will be required for up to 72 hours related to 60 hour half-life methadone. -as Narcan is weaned off will re-initiate opiate therapy per hospice pain management regimen with methadone and oxycodone. 3. Chronic adenocarcinoma lower 3rd of the esophagus, active. -patient is undergone chemotherapy and is now on palliative care with hospice. 4. Dysphagia, chronic, active -patient with episodic sharp stabbing pain with swallowing, tolerates oral liquid medications, patient self feeds home processed healthy diet via gastric tube. The patient is admitted to the hospital as general hospice inpatient for ongoing monitoring and medication titration. Scores GCS [place] coma scale eye opening: Spontaneous [place] coma scale verbal response: Orientated [place] coma scale motor response: Obey commands [place] coma scale total score: 15
--- NOTE | 2019-01-05 01:26 | PC.NURSE ---
Addendum entered by Glendy Kapoor R.N. 01/05/19 06:51: Narcan infusion decreased to 0.10mg/hr by am, patient states his epigastric pain increased after ambulating to BR, VSS. Original Note: 0015-Patient is edwina hancock for assessment, is oriented x3, says abdominal pain is tolerable, narcan gtt infusing at 30ml/hr with NS at 100ml/hr, denies nausea, scheduled IV Zofran given. SpO2 99% on 2L NC, RR 10-16 at rest, SB 50s, BP 112/59.
--- NOTE | 2019-01-05 08:38 | PM.PN.1 ---
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 The patient is resting in bed comfortably. He endorses mild mid abdominal pain that is tolerable. He has no other complaints. He continues on Narcan gtt currently at 0.1 mg/kg/hr. Plan to continue to titrate off of Narcan gtt as pain increases. Discussed care of patient with poison control and hospice who recommend continuing to titrate off and once Narcan has been discontinued restarting his pain regimen with methadone 30 mg every 12 hours and oxycodone 30 mg every 2 hours as needed for breakthrough pain. Exam Vital Signs (past 8 hours): - 01/05/19 15:00 01/05/19 16:00 01/05/19 20:22 Temperature 98.4 F 97.6 F Pulse Rate 52 L 58 L Respiratory Rate 18 18 Blood Pressure 137/75 Pulse Oximetry 96 96 96 Oxygen Delivery Method Room Air Oxygen Flow Rate 0 Narrative Exam Narrative: General: Older thin male sitting in bed and in no acute distress, appears chronically ill, appropriately interactive. HEENT: Normocephalic, atraumatic. External ears without defect. Pupils equal, round, and reactive to light. Anicteric sclerae, moist conjunctivae, and no lid lag. Neck: Supple with full range of motion. No jugular venous distension. Cervical adenopathy present. Cardiovascular: Regular rhythm, mild bradycardia, without murmurs, rubs, or gallops appreciated. Pulmonary: Clear to auscultation bilaterally without crackles, wheezes, or rhonchi. Normal respiratory effort with no use of accessory muscles. Abdomen: Soft, bowel sounds present, mild tenderness to palpation in mid abdomen, nondistended. G-tube in place. No hepatosplenomegaly or masses appreciated. Extremities: No clubbing, cyanosis, or edema. Skin: Normal temperature, turgor, and texture; no rash, ulcers, or subcutaneous nodules appreciated. Neurological: Cranial nerves grossly intact. Psychiatric: Mildly anxious mood and flat affect. Alert and oriented to person, place, and time. 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 1. Acute accidental methadone overdose, present on admission. Resolving. -The patient accidentally received a 300 mg dose of methadone. -Continue Narcan gtt and titrate off as pain level increases and is intolerable. Continue to monitor respiratory status closely while titrating and once stopped. Low threshold to restart if respiratory rate declining. Narcan will likely be titrated off in next 12-18 hours (late tonight or tomorrow morning). Methadone has a 60 hour half-life. -Once Narcan is discontinued recommend restarting his pain regimen with methadone 30 mg every 12 hours and oxycodone 30 mg every 2 hours as needed for breakthrough pain. 2. Acute hypoxemic respiratory failure, present on admission. Resolved. -Patient was acutely hypoxemic related to respiratory depression following accidental methadone overdose. -Continued to treat underlying cause as above. -Continued supplemental oxygen as needed with goal oxygen saturation > 92%. Off oxygen. 3. Advanced esophageal adenocarcinoma with liver metastases and dysphagia status post G-tube placement, chronic, present on admission. Stable. -Patient is undergone chemotherapy and is now on palliative care with hospice. -Plan for P[employer]ATING [employer] OPERATOR of hospice to help with discharge of patient. 4. Dysphagia, chronic, present on admission. Stable. -Patient with episodic sharp stabbing pain with swallowing, tolerates oral liquid medications, patient self feeds home processed healthy diet via gastric tube. -Continue Narcan gtt and reinitiation of pain regimen once titrated off as above. Disposition: Patient likely to discharge home on hospice tomorrow once off narcan and pain regimen has been restarted.
[2019-01-05] MEDS: LACTULOSE 20 GM/30 ML SOLUTION PO ×2 (09:11→21:30)
[2019-01-05] MEDS: HEPARIN 5,000 UNIT/ML VIAL 5000 UNIT SUBCUT ×2 (09:12→21:30)
[2019-01-05] MEDS: SENNOSIDES 8.6 MG TABLET 17.2 MG PO (09:12)
[2019-01-05] MEDS: METOCLOPRAMIDE HCL 10 MG TABLET PO (09:12)
[2019-01-05] MEDS: dexAMETHasone 1 MG TABLET PO (09:13)
--- NOTE | 2019-01-05 12:49 | PC.NURSE ---
NARCAN INFUSION PT WITH NALOXONE GTT 2MG/500ML INFUSING @ 0.1MG/H INITIALLY THIS AM DECREASED TO 0.05MG/H @ 0750 PER PT'S C/O ABD PAIN (UNWILLING TO RATE ) DECREASED TO 0.025MG/H @ 1200 AGAIN FOR C/O ABD DISCOMFORT RATED 3-4/10 WHEN NOT MOVING
[2019-01-05] MEDS: NALOXONE 2 MG in SODIUM CHLORIDE 0.9% 500 ML 6.3 ML IV (13:07)
[2019-01-05] MEDS: SODIUM CHLORIDE 0.9% 250 ML 21 ML IV (13:20)
--- NOTE | 2019-01-05 13:27 | CM.DANOTE ---
Patient is a 68 year old male who was admitted on 01/04/19 for Overdose. Pt has [facility] and [facility] for insurance and his PCP is Dr. Frankel. EMR was reviewed. Per MD, pt currently active with [facility] and here as a GIP pt (stay being paid for by Hospice) for accidental overdose of methadone by family members. Pt likely here 48-72 hours. SW spoke to sporting goods salesperson Blanche who confirms that sporting goods salesperson and MD following pt daily here in the hospital and that once pt off Narcan then methadone will be started again and likely no needs when stable and family will provide transport back home. SW faxed H&P to [facility] to review and will need to fax d/c summary when pt is stable for discharge. Per RN, no family currently bedside and Hospice has been following and coordinating very well. Plan: SW to follow for pt d/c back home via family transport and [facility] to continue to follow. SW to fax d/c summary when available to [facility]. [facility] Lloyd Discharge Planning/Care Management Advanced directive, confirm from FAMILY Start: 01/04/19 15:00 Freq: Q24H Status: Complete Protocol: Document 01/04/19 15:53 [facility] (Rec: 01/04/19 15:54 [facility] [id number]) Advance Directive, confirm on record Time 15:[address] Nai Hernandez Copy received Yes Advanced directive available on record Yes CM Discharge Assessment Start: 01/05/19 13:22 Freq: Status: Active Protocol: Document 01/05/19 13:22 (Rec: 01/05/19 13:27 [id number]) Discharge Planning Assessment Assigned Paintings Restorer LB Tirado Advance Directives? Yes History Provided By Patient,Medical Record Has Patient been admitted in last 30 No days? Prior Living Arrangements House Household Members family,children Type of transporation used prior to Relies on Others admit Comment From home with [facility] open to service Independent with ADL's No Is patient alert and oriented? No Caregiver for Another No Community Services used prior to Hospice admission: DME Already Rented / Owned Bath Bench,Hospital Bed, Wheelchair Comment Home with [facility]ume [facility] Barriers to Discharge No Discharge Plan Home Transportation Arrangement Family to provide transport home Referrals Initiated None needed Whiteboard Updated in Patient Room with Yes name and ext. # of Paintings Restorer Review Status In Process Please Provide Date Initial DC 01/05/19 Assessment Was Performed Next Review Type Continued Stay Review
--- NOTE | 2019-01-05 13:45 | PC.NURSE ---
PT DOING WELL AMBULATING ABOUT OUTSIDE THE UNIT WITH ASSIST FROM FAMILY- HE IS STEADY ON HIS FEET AND FEELING BETTER ABOUT HIS SITUATION- MED CHANGES PER DR. CLAUDIO ( AFTER SPEAKING WITH HOSPICE) AND PLAN TO D/C BACK TO HOME PROBABLY TOMORROW PM- HE STILL NEEDS BM IT HAS BEEN 2 DAYS SINCE LAST ONE- HE CONTINUES TO HAVE FEEDINGS SUPPLIED BY HIS FAMILY AND WHATEVER ICE OR LIQUIDS HE WISHES TO TAKE PO- ATTEMPTING TO SCHEDULE FEEDINGS 4X/DAILY ( PER HOSPICE RECOMMENDATION) NARCAN GTT HAS BEEN DECREASED BY HALF DEPENDING ON PT'S PAIN LEVEL PRESENTLY AT 0.025MG/H WITH NS TKO VIA PORT
[2019-01-05] MEDS: METOCLOPRAMIDE HCL 10 MG TABLET 5 MG PO ×2 (17:20→21:30)
--- NOTE | 2019-01-05 19:26 | PC.NURSE ---
shift overview 1919 at change of shift narcan drip was decreased to 0.012mg or 3ml/hr. pt is alert and conversive and RR WNL. Rates pain 3/10 and states tolerable. Has been tolerating G-tube feedings per home regimen. Able to voice needs and questions and encouraged to continue with the same. Multiple visitors through shift and all are quite caring of pt. Continue to monitor respirations, pain, and LOC.
[2019-01-05] MEDS: ONDANSETRON 4 MG ODT 8 MG PO (21:30)
[2019-01-06] VITALS: BP 145/72; PULSE 54; RESP 18; TEMP 36.9; O2SAT 97
[2019-01-06] MEDS: SODIUM CHLORIDE 0.9% 250 ML 21 ML IV (02:17)
[2019-01-06 04:00] VITALS: BP 141/84; PULSE 68; RESP 18; TEMP 36.9; O2SAT 97
[2019-01-06 08:35] VITALS: BP 145/73; PULSE 56; RESP 16; TEMP 37.1; O2SAT 98
[2019-01-06] MEDS: dexAMETHasone 1 MG TABLET PO (09:38)
[2019-01-06] MEDS: LACTULOSE 20 GM/30 ML SOLUTION PO (09:43)
[2019-01-06] MEDS: METHADONE 10 MG TABLET 30 MG PO (09:43)
[2019-01-06] MEDS: ONDANSETRON 4 MG ODT 8 MG PO (09:43)
[2019-01-06] MEDS: METOCLOPRAMIDE HCL 10 MG TABLET 5 MG PO (09:44)
[2019-01-06] MEDS: HEPARIN 5,000 UNIT/ML VIAL 5000 UNIT SUBCUT (09:44)
[2019-01-06 09:59] VITALS: O2SAT 98
[2019-01-06 12:52] VITALS: BP 134/72; PULSE 56; RESP 15; TEMP 36.6; O2SAT 98
--- NOTE | 2019-01-06 13:09 | P.DS_ITS ---
History of Present Illness History of Present Illness Date Patient Seen: 01/06/19 Time Patient Seen: 13:09 Chief complaint: Overdose Narrative: As per TORSTEN Russell: Mr. Jhony Max is a 68 year male patient with a history significant for candis ocarcinoma the esophagus, metastases to the liver, dysphagia, no abnormal weight lost status post gastric tube placement who presents to the ER via EMS following an accidental opiate overdose. The patient is under the care of hospice and had a does change in his methadone yesterday precipitating a dosing air by family members resulting in the patient receiving 10 times the intended dose. The pat ient was found unresponsive and EMS was summoned. The patient was found to have agonal respirations and a room air pulse ox of 56%. The patient reports orthostatic dizziness but denies headaches. He has had difficulty swallowing with dysphagia but is able to take oral liquid medications. He denies chest pain palpitations, reports no shortness of breath, cough or wheeze. He has epigastric pain that is nonradiating with persistent nausea for which she has been taking Reglan and Zofran. He has a bowel regimen in place and denies constipation. The patient responded to Narcan was transported to the emergency department. On arrival the patient was afebrile with temperature 98.9?, bradycardic with a rate 59, blood pressure 112/67, respirations 16 saturating 96% on 2 L nasal cannula. The patient required repeat does Narcan was started on Narcan drip. Following Narcan administration he became nausea received Zofran. Patient also received a L bolus of normal saline. On laboratory analysis his white count of 6.9, hemoglobin of 12.9, hematocrit of 38.2 and platelets of 213. His electrolytes are all within normal range as well as his chemistry panel. His nonfasting glucose is 121. The patient is admitted for ongoing Narcan infusion secondary to accidental overdose of 300 mg of methadone. Discharge Providers Provider Date of admission: 01/04/19 13:58 Discharge Date: 01/06/19 Primary care physician: Yifan Frankel MD Discharge provider: Jasper Arias DO Summary Hospital Course Discharge Diagnosis: 1. Acute accidental methadone overdose, present on admission. Resolving. 2. Acute hypoxemic respiratory failure, present on admission. Resolved. 3. Advanced esophageal adenocarcinoma with liver metastases and dysphagia status post G-tube placement, chronic, present on admission. Stable. 4. Dysphagia, chronic, present on admission. Stable. 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 He improved after a narcan infusion and was discharged to home hospice on his new regimen of methadone. He was encouraged to use oxycodone as sparingly as possible. 1. Acute accidental methadone overdose, present on admission. Resolving. -The patient accidentally received a 300 mg dose of methadone. -Patient was continued on a narcan infusion until his symptoms improved, his pain returned on the morning of 01/06 and narcan was discontinued. Shortly after methadone 30 mg q12 was resumed with improvement in patient's pain. He was then discharged to home hospice that afternoon on 01/06. 2. Acute hypoxemic respiratory failure, present on admission. Resolved. -Patient was acutely hypoxemic related to respiratory depression following accidental methadone overdose. -Continued to treat underlying cause as above. -Continued supplemental oxygen as needed with goal oxygen saturation > 92%. Off oxygen. 3. Advanced esophageal adenocarcinoma with liver metastases and dysphagia status post G-tube placement, chronic, present on admission. Stable. -Patient is undergone chemotherapy and is now on palliative care with hospice. 4. Dysphagia, chronic, present on admission. Stable. Disposition: Patient discharge home on hospice Exam Vital Signs (past 8 hours): - 01/06/19 08:35 01/06/19 09:59 01/06/19 12:52 Temperature 98.8 F 97.9 F Pulse Rate 56 L 56 L Respiratory Rate 16 15 Blood Pressure 145/73 H 134/72 Pulse Oximetry 98 98 98 Oxygen Delivery Method Room Air Oxygen Flow Rate 0 Narrative Exam Narrative: General: Older thin male sitting in bed and in no acute distress, appears chronically ill, appropriately interactive. HEENT: Normocephalic, atraumatic. External ears without defect. Pupils equal, round, and reactive to light. Anicteric sclerae, moist conjunctivae, and no lid lag. Neck: Supple with full range of motion. No jugular venous distension. Cervical adenopathy present. Cardiovascular: Regular rhythm and rate, without murmurs, rubs, or gallops appreciated. Pulmonary: Clear to auscultation bilaterally without crackles, wheezes, or rhonchi. Normal respiratory effort with no use of accessory muscles. Abdomen: Soft, bowel sounds present, mild tenderness to palpation in mid abdomen, nondistended. G-tube in place. No hepatosplenomegaly or masses appreciated. Extremities: No clubbing, cyanosis, or edema. Skin: Normal temperature, turgor, and texture; no rash, ulcers, or subcutaneous nodules appreciated. Neurological: Cranial nerves grossly intact. Psychiatric: Mildly anxious mood and flat affect. Alert and oriented to person, place, and time. 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 He improved after a narcan infusion and was discharged to home hospice on his new regimen of methadone. He was encouraged to use oxycodone as sparingly as possible. 1. Acute accidental methadone overdose, present on admission. Resolving. -The patient accidentally received a 300 mg dose of methadone. -Patient was continued on a narcan infusion until his symptoms improved, his pain returned on the morning of 01/06 and narcan was discontinued. Shortly after methadone 30 mg q12 was resumed with improvement in patient's pain. He was then discharged to home hospice that afternoon on 01/06. 2. Acute hypoxemic respiratory failure, present on admission. Resolved. -Patient was acutely hypoxemic related to respiratory depression following accidental methadone overdose. -Continued to treat underlying cause as above. -Continued supplemental oxygen as needed with goal oxygen saturation > 92%. Off oxygen. 3. Advanced esophageal adenocarcinoma with liver metastases and dysphagia status post G-tube placement, chronic, present on admission. Stable. -Patient is undergone chemotherapy and is now on palliative care with hospice. 4. Dysphagia, chronic, present on admission. Stable. Disposition: Patient discharge home on hospice Discharge Med Rec/Prescriptions Prescriptions: Continued sennosides [senna] 8.6 mg Tablet 8.6 - 34.4 mg PO BID MDD 4 tab bid PRN (Reason: Constipation) RF: 0 acetaminophen 160 mg/5 mL Liquid 640 mg PO Q6H PRN (Reason: pain) RF: 0 metoclopramide HCl 5 mg/5 mL Solution 10 mg PO QID RF: 0 Dexamethasone Intensol 1 mg/mL Drops 1 mg PO DAILY RF: 0 ondansetron 8 mg Tablet,Disintegrating 8 mg PO DAILY PRN (Reason: Nausea) RF: 0 magnesium citrate Solution 250 ml PO DAILY PRN (Reason: Constipation) RF: 0 methadone [Methadone Intensol] 10 mg/mL Concentrate 30 mg PO Q12H RF: 0 glycopyrrolate 2 mg Tablet 2 mg PO BID PRN (Reason: oral secretions) RF: 0 olanzapine 5 mg Tablet,Disintegrating 2.5 mg PO Q6H PRN (Reason: Nausea) RF: 0 sodium chloride 0.9 % (flush) [Normal Saline Flush] Syringe 20 ml IV Q4W RF: 0 clonazepam 2 mg Tablet,Disintegrating 2 mg PO Q4H PRN (Reason: terminal agitation) RF: 0 heparin lock flush (porcine) 100 unit/mL Solution 500 unit IV Q4W RF: 0 lidocaine (PF) 10 mg/mL (1 %) Solution 0.15 - 0.3 ml subcut Q4W RF: 0 lactulose 10 gram/15 mL (15 mL) Solution 15 - 120 ml PO DAILY MDD 60 ml bid PRN (Reason: Constipation) RF: 0 oxycodone 5 mg/5 mL solution 30 mg PO Q3H PRN (Reason: pain) RF: 0 ondansetron 8 mg tablet,disintegrating 8 mg PO BID RF: 0 sennosides [Senna Lax] 8.6 mg Tablet 25.8 mg PO TID RF: 0 Follow up/Referrals: Yifan Frankel MD [Primary Care Provider] - Provider Discharge Instructions Diet: Diet as Tolerated Activity: As tolerated Discharge Data Primary Care Provider: Yifan Frankel
--- NOTE | 2019-01-06 14:39 | PC.NURSE ---
Discharge: Port was heparin flushed this morning. Left accessed per patient request because he has an appt where they would be accessing it in 2 days. He states he knows how to take care of it at home, plus hospice will resume with patient as early as tomorrow. Tele dc'd. Reviewed discharge instructions thoroughly with patient. No new meds, no changes to home meds. Has all scripts at home already. Verbalized understanding of all instructions and stated no further questions. All belongings sent with patient at discharge including home tube feed supplies. Taken out to private vehicle by nursing staff.
--- NOTE | 2019-01-06 15:46 | CM.DPNOTE ---
DC Note: DC home w/family, as expected, w/Hospice to continue end of life management. faxed DC summary to [facility]
== END 2019-01-06 14:44 | disposition hospice, home (50) | DRG 917 ==
LOC: ED 12:01 → ICU 14:22 → AC 01-05 17:50
PROVIDERS: Admitting Provider Internal Medicine; Emergency Provider Emergency Medicine; PCP Family Medicine; Visit Provider Internal Medicine
DX: T40.3X1A Poisoning by methadone, accidental (unintentional), initial encounter (principal); J96.01 Acute respiratory failure with hypoxia; C15.9 Malignant neoplasm of esophagus, unspecified; C78.7 Secondary malignant neoplasm of liver and intrahepatic bile duct; R13.10 Dysphagia, unspecified
CPT/HCPCS: 87797; 93005; 94762; 96365; 96366; 99285; 99291; J1642; J1644; J2310; J2405